=== PATIENT | female | born 1990 | race Caucasian/White ===

== ENCOUNTER → 2020-06-28 14:56 | Outpatient (CLI) | payer BC, SELFPAY | PROVIDERS: PCP Internal Medicine Adolescent Medicine; Visit Provider Internal Medicine Adolescent Medicine | DX: Z03.818 Encounter for observation for suspected exposure to other biological agents ruled out (principal); M79.10 Myalgia, unspecified site | CPT/HCPCS: U0003 ==

== ENCOUNTER 2020-08-19 06:35 | Emergency (ER) | payer BC, SELFPAY ==
[2020-08-19 06:44] VITALS: BP 128/86; PULSE 103; RESP 18; TEMP 36.9; O2SAT 97; BMI 40.3
--- NOTE | 2020-08-19 06:45 | HMH.EDGENADL ---
ED Disposition Condition on Discharge: Good - Critical Care Critical Care Time: No <Hebert Sutton - Last Filed: 08/19/20 07:49> Condition on Discharge: Good - Critical Care Critical Care Time: No <ManueljuliánPierre - Last Filed: 08/19/20 08:32> Clinical Impression: Vaginal bleeding Disposition: Home, Self-Care Additional Instructions: Please follow-up with [facility] [facility] in regards to vaginal bleeding. Ultrasound today confirms what appears to be normal intrauterine . No bacteria noted on urinalysis. Hemoglobin normal at 13 g. Please immediately return if any worsening vaginal bleeding, abdominal pain, lightheadedness/dizziness, weakness, or any other new concerning symptoms. Referrals: Salvador Awad MD [Primary Care Provider] - Attestation: On 08/19/20, the high probability of a clinically significant, sudden or life threatening deterioration of the following system(s) required my full and direct attention, intervention and personal management. The time I documented below is in addition to time spent performing reported procedures but includes the following listed in this critical care notation. Medical Decision Making - Medical Records Medical records reviewed: Yes: I reviewed the patient's medical records. - Tian Inquiry Pt receiving controlled substance: No - Lab Data Result diagrams: 08/19/20 07:00 08/19/20 07:00 <Hebert Sutton - Last Filed: 08/19/20 07:49> - Lab Data Result diagrams: 08/19/20 07:00 08/19/20 07:00 <ManueljuliánPierre - Last Filed: 08/19/20 08:32> Vital Signs: 08/19/20 06:44 08/19/20 08:07 Temperature 98.5 F Temperature Source Oral Pulse Rate [Right] 103 H 79 Respiratory Rate 18 18 Blood Pressure [Right Arm] 128/86 134/68 Blood Pressure Mean [Right Arm] 100 90 Blood Pressure Source [Right Arm] Automatic Cuff Blood Pressure Position [Right Arm] Sitting 02 Sat by Pulse Oximetry 97 100 Oxygen Delivery Method Room Air Room Air - Lab Data Lab Results 08/19/20 07:00: WBC 7.8, RBC 4.49, Hgb 13.4, Hct 39.5, MCV 88.0, MCH 29.8, MCHC 33.9, RDW 12.8, Plt Count 219, MPV 7.9, Neut % (Auto) 70.9, Lymph % (Auto) 24.7, [place] % (Auto) 3.2, Eos % (Auto) 1.0, Baso % (Auto) 0.2, Neut # (Auto) 5.6, Lymph # (Auto) 1.9, [place] # (Auto) 0.3, Eos # (Auto) 0.1, Baso # (Auto) 0.0 08/19/20 07:00: Sodium 135 L, Potassium 3.7, Chloride 107, Carbon Dioxide 22, Anion Gap 9.7, BUN 9, Creatinine 0.70, Estimated Creat Clear 214, Estimated GFR 100, Est GFR ( Amer) 121, Glucose 110 H, Calcium 9.0, Total Bilirubin 0.4, AST 20, ALT 17, Alkaline Phosphatase 55, Total Protein 7.1, Albumin 3.7, Globulin 3.4 H, Albumin/Globulin Ratio 1.1 08/19/20 07:00: Blood Type A Positive 08/19/20 08:10: Urine Color Yellow, Urine Appearance Clear, Urine pH 6.0, Ur Specific [place] 1.025, Urine Protein Negative, Urine Glucose (UA) Negative, Urine Ketones Negative, Urine Blood 3+, Urine Nitrate Negative, Urine Bilirubin Negative, Urine Urobilinogen 0.2, Ur Leukocyte Esterase Negative, Urine RBC 5-10, Urine WBC None, Ur Squamous Epith Cells 10-20, Urine Bacteria None Orders (Tests/Meds): ORDERS Category Date Time Status US transvaginal Stat Exams 08/19/20 06:53 Taken Medical Decision Narrative: Richie: Patient care assumed for Dr. Sutton. In brief, patient is a 30-year-old coming in with vaginal bleeding 13 weeks into her . Bleeding is less than typical menses. Ultrasound confirms IUP without any significant complications. Patient is Rh+ so no indication for RhoGam. Urinalysis was obtained and demonstrates no bacteria. There is 3+ blood which fits into patient's clinical presentation. No indication for treatment for an infectious process. Other lab work unremarkable for significant anemia secondary to blood loss or any other significant changes. At this time, I shared this result with patient and family at bedside. All parties are understanding and agreement. I do believe patien
--- NOTE | 2020-08-19 06:52 | PC.NURSE ---
Called in ultrasound
--- NOTE | 2020-08-19 06:53 | US_ITS ---
PROCEDURE: US TRANSVAGINAL CLINICAL INDICATION: bleeding, 13 w preg COMPARISON: No exams were available for comparison FINDINGS: There is a single viable fetus in breech presentation. The cervix measures 4 cm and is closed. heart rate is 156 beats per minute. There is a normal amount of amniotic fluid seen. Early anterior placenta forming. No evidence of placenta previa. No gross abnormality is identified. Both ovaries appear normal. The crown-rump length measures 7.96 cm equaling 14 weeks and 0 days within the other measurements of 7.69 cm equaling 13 weeks and 6 days. IMPRESSION: Viable early intrauterine , recommend follow-up anatomical ultrasound at approximately 20 weeks for better overall evaluation. Dictated by: Dr. Emmett Caraballo MD 08/19/2020 08:51 Dr. Emmett Caraballo MD in OV 08/19/2020 08:51
[2020-08-19 07:14] LABS: Basophils % 0.2 % (0.1-2.0); Eosinophils # 0.1 K/mm3 (0.0-0.4); Hematocrit 39.5 % (37.0-47.0); Hemoglobin 13.4 g/dL (12.2-16.2); Lymphocytes # 1.9 K/mm3 (0.7-4.5); Lymphocytes % 24.7 % (10-50); Mean Corpuscular HGB Conc 33.9 g/dL (31.8-35.4); Mean Corpuscular Hemoglobin 29.8 pg (27.0-31.2); Mean Platelet Volume 7.9 fl (7.4-10.4); Monocytes # 0.3 K/mm3 (0.1-1.0); Monocytes % 3.2 % (1.7-9.3); Neutrophils # 5.6 K/mm3 (1.8-7.8); Neutrophils % 70.9 % (37.0-80.0); Platelet Count 219 K/mm3 (142-424); Red Blood Count 4.49 M/mm3 (4.20-5.40); Red Cell Distribution Width 12.8 % (11.5-17.5); White Blood Count 7.8 K/mm3 (4.8-10.8)
--- NOTE | 2020-08-19 07:20 | PC.NURSE ---
pt to ultrasound
[2020-08-19 07:22] LABS: Chloride 107 mmol/L (98-107); Potassium 3.7 mmoL/L (3.5-5.1); Sodium 135 mmol/L (136-145)
[2020-08-19 07:25] LABS: Alanine Aminotransferase 17 U/L (12-78); Albumin Level 3.7 g/dl (3.5-5.0); Albumin/Globulin Ratio 1.1 (1.1-1.8); Alkaline Phosphatase 55 U/L (38-126); Anion Gap 9.7 mEq/L (5-15); Aspartate Amino Transferase 20 U/L (14-36); Bilirubin,Total 0.4 mg/dl (0.2-1.3); Blood Urea Nitrogen 9 mg/dl (7-17); Carbon Dioxide 22 mmol/L (22.0-30.0); Creatinine Clearance Estimated 214 mL/min (50-200); Estimated Glomerular Filt Rate 100 ml/min (>60); GFR (African American) 121 ML/MIN (>60); Globulin 3.4 g/dL (1.3-3.2); Glucose 110 mg/dl (74-100); Total Protein,Serum 7.1 g/dl (6.3-8.2)
--- NOTE | 2020-08-19 07:45 | PC.NURSE ---
pt return from ultrasound pt drinking water at this time to try and be able to void to collect urine specimen
[2020-08-19 08:07] VITALS: BP 134/68; PULSE 79; RESP 18; O2SAT 100
[2020-08-19 08:11] LABS: Microscopic, Urine URINE MICROSCOPIC (MICROSCOPIC)
[2020-08-19 08:13] LABS: Appearance,Urine CLEAR (Clear); Bilirubin,Urine Negative (Negative); Blood, Urine 3+ (Negative); Color,Urine YELLOW (Yellow); Glucose,Urine (UA) Negative (Negative); Ketones,Urine Negative (Negative); Leukocyte Esterase,Urine Negative (Negative); Nitrate,Urine Negative (Negative); Protein,Urine Negative (Negative); Specific Gravity, Urine 1.025 (1.005-1.030); Urobilinogen,Urine 0.2 EU/dl (0.2)
[2020-08-19 08:47] VITALS: BP 134/68; PULSE 79; RESP 18; TEMP 36.9; O2SAT 100
== END 2020-08-19 08:47 | disposition home or self-care (01) ==
PROVIDERS: Emergency Provider Emergency Medicine; PCP Internal Medicine Adolescent Medicine
DX: O20.9 Hemorrhage in early pregnancy, unspecified (principal); Z3A.13 13 weeks gestation of pregnancy; R31.29 Other microscopic hematuria
CPT/HCPCS: 36415; 76830; 80053; 81001; 85025; 86900; 86901; 99283

== ENCOUNTER → 2021-05-14 09:21 | Outpatient (CLI) | payer OTHER, SELFPAY ==
[2021-05-14 09:47] LABS: Urine Pregnancy, HCG Qual. Negative (Negative)
[2021-05-14 09:49] LABS: Basophils # 0.1 K/mm3 (0-0.2); Basophils % 0.8 % (0.1-2.0); Eosinophils # 0.1 K/mm3 (0.0-0.4); Eosinophils % 1.4 % (0.1-12.0); Hematocrit 37.3 % (37.0-47.0); Hemoglobin 12.2 g/dL (12.2-16.2); Lymphocytes # 2.3 K/mm3 (0.7-4.5); Mean Corpuscular HGB Conc 32.8 g/dL (31.8-35.4); Mean Corpuscular Hemoglobin 29.3 pg (27.0-31.2); Mean Corpuscular Volume 89.4 fl (81-99); Mean Platelet Volume 7.8 fl (7.4-10.4); Monocytes # 0.3 K/mm3 (0.1-1.0); Monocytes % 3.6 % (1.7-9.3); Neutrophils # 4.4 K/mm3 (1.8-7.8); Neutrophils % 62.2 % (37.0-80.0); Platelet Count 295 K/mm3 (142-424); Red Blood Count 4.17 M/mm3 (4.20-5.40); Red Cell Distribution Width 13.4 % (11.5-17.5)
[2021-05-14 11:06] LABS: Chloride 106 mmol/L (98-107); Potassium 4.1 mmoL/L (3.5-5.1); Sodium 140 mmol/L (136-145)
[2021-05-14 11:09] LABS: Anion Gap 12.1 mEq/L (5-15); Blood Urea Nitrogen 10 mg/dl (7-17); Calcium 8.9 mg/dl (8.4-10.2); Carbon Dioxide 26 mmol/L (22.0-30.0); Estimated Glomerular Filt Rate 85 ml/min (>60); GFR (African American) 103 ML/MIN (>60); Glucose 104 mg/dl (74-100)
== END ==
PROVIDERS: Visit Provider Surgery
DX: Z01.812 Encounter for preprocedural laboratory examination (principal); N61.1 Abscess of the breast and nipple; Z20.822 Contact with and (suspected) exposure to COVID-19; U07.1 COVID-19
CPT/HCPCS: 36415; 80048; 81025; 85025; U0003

== ENCOUNTER 2021-05-15 06:05 | Day surgery (SDC) | payer OTHER, SELFPAY ==
[2021-05-14 12:09] VITALS: BMI 40.7
[2021-05-15] VITALS (12 sets, daily range): BP systolic 125–145; BP diastolic 70–94; PULSE 61–85; RESP 12–18; TEMP 36.2–36.6; O2SAT 95–99
--- NOTE | 2021-05-15 07:45 | HMH.OPNOTE ---
Date of procedure: 05/15/21 Pre-op Diagnosis:: Medial left breast/mid-chest abscess Post-op Diagnosis:: Same Procedure performed:: Incision and drainage of left medial breast/mid-chest abscess Surgeon:: Adalberto June MD BUSINESS PROJECT MANAGER:: Neal Byers Anesthesia: LMA Estimated blood loss (mL): 5 Operative findings:: Large pocket of purulence projecting from the mid chest to left medial breast with surrounding induration Operative note:: After informed consent was obtained the patient was taken to the operating room and placed in the supine position. Her left breast and mid chest were prepped and draped in a sterile fashion. A small opening with ongoing drainage was noted along the mid chest. Electrocautery was utilized to expand this site utilizing an elliptical incision. Fluid was obtained for Gram stain/culture. A pocket projecting toward the left medial breast was noted. This was evacuated. Moistened Kerlix was packed throughout the wound. The entire region was infiltrated with 1% lidocaine. Dressings were secured and the patient was transferred to recovery after removal of her laryngeal mask airway. Condition: stable Disposition: PACU Specimens:: Fluid for Gram stain/culture Complications:: No immediate
--- NOTE | 2021-05-15 07:53 | P.PN_ITS ---
[facility] Anesthesia Checklist - Structural Data Admitted From: Home Planned Operative Procedure/s: i/d chest abcess Consent for Planned Operative Procedure(s) Verified: Yes - Additional verifications Anesthesia Reactions: No Hx Blood Transfusions: No Blood Transfusion Reaction: No - Airway Assessment C-Spine Mobility Assessed: Yes TMJ Mobility Assessed: Yes Dentition: Good Dentition - Neurological Assessment Level of Consciousness: Awake, Alert, Appropriate - Anesthesia Plan Anesthesia Risk discussed: Yes Anesthesia Plan: Verified ASA Class: II Anesthesia Type: General [facility] History I have reviewed the patient's past medical history: Yes Medical History: Denies:: Cancer, Diabetes Mellitus Type 1, Diabetes Mellitus Type 2, Internal Pacemaker, MRSA, Seizures *Have you ever received a pneumonia vaccine?: No *Have you received a flu vaccine this season?: No Other Medical History: Denies: Blood Transfusion Reaction Anesthesia experience/problems:: none Other Surgeries: Yes: Other. No: Pacemaker Amputation: No - *Social History Last grade of school completed: High school graduate Smoking Status: Never smoker Alcohol Intake: never Substance Use Type: denies use *Occupational Status:: employed Housing: house Household Members: spouse, family *Travel in the last 8 weeks: None Family Hx:: No significant family history
--- NOTE | 2021-05-15 07:53 | HMH.ANESI ---
[facility] Anesthesia Record Part I Intake, IV Amount: 500 Estimated blood loss (mL): 0 Urine output (mL): 0 Blood Pressure: 134/80 SaO2: 95 Pulse Rate: 74 Respiratory Rate: 12 Temperature: 97.9 F Patient is:: Awake, Stable Stable to PACU at:: 07:50
--- NOTE | 2021-05-15 10:32 | P.PN_ITS ---
[facility] Anesthesia Record Part II Discharge Time: 08:50 Destination: Surgical Day Care (OP Surgery) PACU nurse assessment reviewed?: Yes Patient Condition:: Good Anesthesia Complications:: None Swallowing reflex intact?: Yes Cyanosis?: No Blood Pressure: 138/94 Pulse Rate: 67 Temperature: 97.7 F Mental Status: Alert & Oriented Pain level:: 2 Nausea and/or vomitting:: None Intake, IV Amount: 0
== END 2021-05-15 09:01 | disposition home or self-care (01) ==
LOC: OR 06:07
PROVIDERS: PCP Internal Medicine Adolescent Medicine; Visit Provider Surgery
PROC: (CPT 10061; principal; 2021-05-15 07:30)
DX: L02.219 Cutaneous abscess of trunk, unspecified
CPT/HCPCS: 10061; 87070; 87075; 87205; J2405

== ENCOUNTER 2022-03-04 16:48 | Emergency (ER) | payer OTHER, SELFPAY ==
[2022-03-04 16:49] VITALS: BP 133/95; PULSE 80; RESP 16; TEMP 36.8; O2SAT 98; BMI 43.8
[2022-03-04 17:12] LABS: POC Glucose,Bedside 94 (70-110)
--- NOTE | 2022-03-04 17:13 | HMH.EDGENADL ---
ED Disposition Clinical Impression: Vertigo Disposition: Home, Self-Care Condition on Discharge: Good Instructions: DI for Vertigo Additional Instructions: Antivert as needed for dizziness. Follow-up with primary care provider if symptoms persist. Prescriptions: Meclizine HCl [Antivert 25mg tablet] 25 mg PO TIDP PRN #15 tab PRN Reason: Vertigo Transmission Status: Pending to [facility][id number] Referrals: Salvador Awad MD [Primary Care Provider] - - Critical Care Critical Care Time: No Attestation: On 03/04/22, the high probability of a clinically significant, sudden or life threatening deterioration of the following system(s) required my full and direct attention, intervention and personal management. The time I documented below is in addition to time spent performing reported procedures but includes the following listed in this critical care notation. Medical Decision Making - Tian Inquiry Pt receiving controlled substance: No Vital Signs: 03/04/22 16:49 03/04/22 17:26 03/04/22 18:15 Temperature 98.2 F Temperature Source Oral Pulse Rate 74 75 Pulse Rate [Radial] 80 Respiratory Rate 16 16 19 Blood Pressure 122/80 122/75 Blood Pressure [Right Arm] 133/95 H Blood Pressure Mean [Right Arm] 107 Blood Pressure Position Sitting 02 Sat by Pulse Oximetry 98 98 100 Oxygen Delivery Method Room Air Room Air - Lab Data Lab Results 03/04/22 12:00: Urine Color Yellow, Urine Appearance Clear, Urine pH 6.0, Ur Specific [place] 1.025, Urine Protein Negative, Urine Glucose (UA) Negative, Urine Ketones Trace, Urine Blood 3+, Urine Nitrate Negative, Urine Bilirubin Negative, Urine Urobilinogen 0.2, Ur Leukocyte Esterase Negative, Urine RBC 5-10, Urine WBC None, Ur Squamous Epith Cells Occasional, Urine Bacteria None 03/04/22 12:00: Urine HCG, Qual Negative 03/04/22 16:55: Group A Strep Rapid Negative 03/04/22 17:00: WBC 6.9, RBC 4.76, Hgb 14.1, Hct 40.3, MCV 84.7, MCH 29.6, MCHC 34.9, RDW 12.6, Plt Count 247, MPV 7.7, Neut % (Auto) 48.4, Lymph % (Auto) 44.6, [place] % (Auto) 4.3, Eos % (Auto) 2.0, Baso % (Auto) 0.7, Neut # (Auto) 3.3, Lymph # (Auto) 3.1, [place] # (Auto) 0.3, Eos # (Auto) 0.1, Baso # (Auto) 0.1, Total Counted 100, Neutrophils % (Manual) 51, Lymphocytes % (Manual) 42, Monocytes % (Manual) 6, Eosinophils % (Manual) 1, Platelet Estimate Normal, RBC Morphology Normal 03/04/22 17:00: Sodium 140, Potassium 3.9, Chloride 103, Carbon Dioxide 29, Anion Gap 11.9, BUN 12, Creatinine 1.00, Estimated Creat Clear 80, Estimated GFR 65, Est GFR ( Amer) 79, Glucose 102 H, Calcium 9.1, Total Bilirubin 0.1 L, AST 29, ALT 31, Alkaline Phosphatase 75, Total Protein 7.9, Albumin 4.2, Globulin 3.7 H, Albumin/Globulin Ratio 1.1 03/04/22 17:04: POC Glucose 94 Result diagrams: 03/04/22 17:00 03/04/22 17:00 Orders (Tests/Meds): ED MEDICATIONS Discontinued Medications Generic Name Dose Route Start Last Admin Trade Name Freq PRN Reason Stop Dose Admin Meclizine HCl 25 mg 03/04/22 17:39 03/04/22 17:51 Meclizine 25mg Tablet PO 03/04/22 17:40 25 mg ONCE ONE Administration Ondansetron HCl 4 mg 03/04/22 17:39 03/04/22 17:51 Ondansetron 4mg/2ml Vial IV 03/04/22 17:40 4 mg ONCE ONE Administration ORDERS Category Date Time Status Strep Screen Confirmation Stat Micro 03/04/22 16:55 Received - ECG Data Tracing #1 EKG interpreted by Lucas Duran MD: Rhythm: sinus Rate: 82 [place]: normal Ectopy: none Conduction: normal ST Segment Changes: none T Wave Changes: none Q Waves: none Poor R wave progression Medical Decision Narrative: 5:51 PM: I spoke with the laboratory mechanic helper. Discussed CBC differential results. She says that she ran QC after seeing the abnormal results and the QC also returned with unusual results. She therefore ran it on a different machine and states that it looks better, she will enter those results as well as perform a manual dif
[2022-03-04 17:14] LABS: Microscopic, Urine URINE MICROSCOPIC (MICROSCOPIC)
[2022-03-04 17:15] LABS: Appearance,Urine CLEAR (Clear); Bilirubin,Urine Negative (Negative); Blood, Urine 3+ (Negative); Color,Urine YELLOW (Yellow); Glucose,Urine (UA) Negative (Negative); Ketones,Urine TRACE (Negative); Leukocyte Esterase,Urine Negative (Negative); Nitrate,Urine Negative (Negative); Protein,Urine Negative (Negative); Specific Gravity, Urine 1.025 (1.005-1.030); Urobilinogen,Urine 0.2 EU/dl (0.2)
[2022-03-04 17:19] LABS: Urine Pregnancy, HCG Qual. Negative (Negative)
--- NOTE | 2022-03-04 17:22 | ECG_ITS ---
APPROVED REPORT Exam: Resting ECG HR:82 bpm ECG Measurements Heart Rate 82 AXES VA 180 P 38 QRSd 89 QRS 7 QT 370 T 53 QTc 409 Conclusion SINUS RHYTHM Late R wave progression BORDERLINE ECG UNCONFIRMED REPORT Electronically signed by : Neftaly Cho MD 03/05/2022 17:28:17
[2022-03-04 17:26] VITALS: BP 122/80; PULSE 74; RESP 16; O2SAT 98
[2022-03-04 17:30] LABS: Alanine Aminotransferase 31 U/L (12-78); Albumin Level 4.2 g/dl (3.5-5.0); Albumin/Globulin Ratio 1.1 (1.1-1.8); Alkaline Phosphatase 75 U/L (38-126); Anion Gap 11.9 mEq/L (5-15); Aspartate Amino Transferase 29 U/L (14-36); Blood Urea Nitrogen 12 mg/dl (7-17); Calcium 9.1 mg/dl (8.4-10.2); Carbon Dioxide 29 mmol/L (22.0-30.0); Chloride 103 mmol/L (98-107); Creatinine Clearance Estimated 80 mL/min (50-200); Estimated Glomerular Filt Rate 65 ml/min (>60); GFR (African American) 79 ML/MIN (>60); Globulin 3.7 g/dL (1.3-3.2); Glucose 102 mg/dl (74-100); Potassium 3.9 mmoL/L (3.5-5.1); Sodium 140 mmol/L (136-145); Total Protein,Serum 7.9 g/dl (6.3-8.2)
[2022-03-04 17:36] LABS: Squamous Epithelial Cell,Urine Occasional #/hpf (0-5)
[2022-03-04 17:38] LABS: Bilirubin,Total 0.1 mg/dl (0.2-1.3)
[2022-03-04 17:43] LABS: MANUAL DIFFERENTIAL MANUAL DIFFERENTIAL (MANUAL DIFF)
[2022-03-04 18:06] LABS: Strep Scrn Group A (Rapid) Negative (Negative)
[2022-03-04 18:08] LABS: Hematocrit 40.3 % (37.0-47.0); Hemoglobin 14.1 g/dL (12.2-16.2); Mean Corpuscular HGB Conc 34.9 g/dL (31.8-35.4); Mean Corpuscular Hemoglobin 29.6 pg (27.0-31.2); Mean Corpuscular Volume 84.7 fl (81-99); Mean Platelet Volume 7.7 fl (7.4-10.4); Neutrophils % 48.4 % (37.0-80.0); Platelet Count 247 K/mm3 (142-424); Red Blood Count 4.76 M/mm3 (4.20-5.40); Red Cell Distribution Width 12.6 % (11.5-17.5); White Blood Count 6.9 K/mm3 (4.8-10.8)
[2022-03-04 18:09] LABS: Basophils # 0.1 K/mm3 (0-0.2); Basophils % 0.7 % (0.1-2.0); Eosinophils # 0.1 K/mm3 (0.0-0.4); Lymphocytes # 3.1 K/mm3 (0.7-4.5); Lymphocytes % 44.6 % (10-50); Monocytes # 0.3 K/mm3 (0.1-1.0); Monocytes % 4.3 % (1.7-9.3); Neutrophils # 3.3 K/mm3 (1.8-7.8)
[2022-03-04 18:15] VITALS: BP 122/75; PULSE 75; RESP 19; O2SAT 100
--- NOTE | 2022-03-04 18:15 | PC.NURSE ---
PT RESTING OFFERS NO C/O AT PRESENT
[2022-03-04 18:30] VITALS: BP 115/75; PULSE 72; RESP 19
[2022-03-04 18:36] LABS: Eosinophils % 1 % (0-3); Lymphocytes % 42 % (10-50); Monocytes % 6 % (2-9); Neutrophils % 51 % (42-76); Total Cells Counted 100
[2022-03-04 18:37] LABS: Platelet Estimate Normal; RBC Morphology Normal
[2022-03-04 18:50] VITALS: BP 115/75; PULSE 72; RESP 19; TEMP 36.8; O2SAT 100
[2022-03-04 18:52] VITALS: BP 115/75; PULSE 78; RESP 16; TEMP 36.6; O2SAT 98
== END 2022-03-04 18:53 | disposition home or self-care (01) ==
PROVIDERS: Emergency Provider Emergency Medicine; PCP Internal Medicine Adolescent Medicine
DX: R42 Dizziness and giddiness (principal); R03.0 Elevated blood-pressure reading, without diagnosis of hypertension; R11.0 Nausea
CPT/HCPCS: 80053; 81001; 81025; 82962; 85007; 85025; 87430; 93005; 96374; 99284; J2405

== ENCOUNTER 2024-03-15 15:43 | Observation (INO) | payer BC, SELFPAY ==
[2024-03-15] VITALS (8 sets, daily range): BP systolic 115–153; BP diastolic 60–98; PULSE 79–99; RESP 18; TEMP 36.8–37.3; O2SAT 98–100; BMI 47.1; BMI 47.0; BMI 47.7
--- NOTE | 2024-03-15 15:59 | ED_ITS ---
Discharge Plan Disposition Patient Disposition: Still a Patient Condition: Good Prescriptions Prescriptions: No Action meclizine 25 MG tablet 25 mg PO TIDP PRN (Reason: Vertigo) Qty: 15 0RF Referrals Follow up/Referrals: Qian Arevalo APRN [Primary Care Provider] - See instructions Clinical Impressions Clinical Impression: Abscess of left breast Discharge ED Provider: Salvador Hammer [facility] HPI General Stated complaint: left bump on chest Time Seen by Provider: 03/15/24 15:59 History of Present Illness Provider Complaint: She states that for the past 4 days approx she has had worsening swelling, redness, and hardness of a large area on her left breast. She denies fever, but she has had chills and malaise. She has a history of having a left breast abscess 2 years ago in this same area. She had to go to surgery to have that one drained. She states that her current symptoms are much worse than her symptoms were when she had to go to surgery. Related Data Previous Rx's Medication Instructions Recorded meclizine 25 mg tablet 25 mg PO TIDP PRN Vertigo #15 tabs 03/04/22 Allergies Allergy/AdvReac Type Severity Reaction Status Date / Time No Known Allergies Allergy Verified 03/15/24 16:06 [facility] Disclaimer: The information contained in this section may have been updated after the patient was seen, as this information can be updated by other users. Social History Smoking Status: Never smoker alcohol intake: never substance use type: denies use current occupational status: employed Travel in the last 8 weeks: None household members: spouse and family housing: house current occupation: [employer] caffeine: Yes ROS Obtained: Yes All systems reviewed & no additional complaints except as documented Constitutional Constitutional: Denies chills and Denies fever(s) Eyes Eyes: Denies eye discharge ENT Ears, Nose, Mouth, and Throat: Denies dizziness, Denies otalgia and Denies sore throat Cardiovascular Cardiovascular: Denies chest pain Respiratory Respiratory: Denies shortness of breath, Denies chest congestion, Denies cough, Denies stridor and Denies wheezing Gastrointestinal Gastrointestingal: Denies nausea or vomiting Musculoskeletal Musculoskeletal: Reports system reviewed and no additional complaints, except as documented and Denies arthralgias Integumentary/Breasts Skin/Breast: Reports as per HPI Neurologic Neurologic: Denies dizziness and Denies paresthesias Allergic/Immunologic Allergic/Immunologic: Denies wheezing Physical Exam General General appearance: alert and in no apparent distress Head Head exam: atraumatic, normocephalic and normal inspection Eye Eye exam: Present normal appearance, PERRL and EOMI ENT ENT exam: Present normal exam, normal oropharynx, mucous membranes moist, TM's normal bilaterally and normal external ear exam Neck Neck exam: Present normal inspection, full ROM and trachea midline; Absent meningismus or lymphadenopathy Chest Chest inspection: Present symmetric chest wall rise and tenderness Expanded Chest Exam Breast: left: erythema, swelling and tenderness Respiratory Respiratory exam: Present normal lung sounds bilaterally; Absent respiratory distress Cardiovascular Cardiovascular exam: Present regular rate and normal rhythm; Absent JVD Abdominal Exam Abdominal exam: Present soft and normal bowel sounds; Absent distention, tenderness or guarding Extremities Exam Extremities exam: Present normal inspection, full ROM and normal capillary refill; Absent calf tenderness Back Exam Back exam: Present normal inspection; Absent tenderness Neurological Exam Neurological exam: Present alert and oriented X3 Psychiatric Psychiatric exam: Present normal affect and normal mood Skin Skin exam: Present warm, dry, intact and normal color Lymphatic Lymphatic Findings: no adenopathy Medical Decision Making Medical Records Medical records reviewed: No I reviewed the patient's medical records. Tian Inquiry Pt receiving controlled substance: No Medical Decision Narrative: She was transferred to the ER due to her having a significant breast abscess and her history of having to go to surgery in the past to have a similar one drained.
--- NOTE | 2024-03-15 17:12 | CT_ITS ---
PROCEDURE INFORMATION: Exam: CT Chest With Contrast; Diagnostic Exam date and time: 03/15/2024 6:03 PM Age: 34 years old Clinical indication: Other: L breast abscess adjacent to sternum TECHNIQUE: Imaging protocol: Diagnostic computed tomography of the chest with contrast. Radiation optimization: All CT scans at this facility use at least one of these dose optimization techniques: automated exposure control; mA and/or kV adjustment per patient size (includes targeted exams where dose is matched to clinical indication); or iterative reconstruction. Contrast material: ISOVUE; Contrast volume: 75 ml; Contrast route: IV; COMPARISON: No relevant prior studies available. FINDINGS: Trachea: Findings suggestive of surgical clips in the pretracheal space as well as right hilar region. Clinically correlate regarding type of operative intervention. Lungs: Unremarkable. No consolidation. No masses. Pleural spaces: Unremarkable. No pneumothorax. No pleural effusion. Heart: Unremarkable. No cardiomegaly. No pericardial effusion. Coronary arteries: No evidence of coronary artery calcification Lymph nodes: Left 3 x 1.7 cm axillary adenopathy. Vasculature: Unremarkable. No aortic aneurysm. Diaphragm: Small hiatal hernia Liver: Decreased density throughout the liver compatible with hepatic steatosis. Spleen: Poorly defined Iso to hypodense mass within the spleen. Findings may correspond to a hemangioma however not adequately visualized. 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 Bones/joints: Unremarkable. No acute fracture. Soft tissues: 5.5 x 2.9 cm ovoid hypodense mass involving the primarily involving the subcutaneous tissues of the left breast. Slight extension into the left breast parenchyma. Findings most compatible with abscess formation. IMPRESSION: 1. 5.5 x 2.9 cm ovoid hypodense mass primarily involving the subcutaneous tissues of the left breast. Slight extension into the left breast parenchyma. Findings most compatible with abscess formation. 2. Left 3 x 1.7 cm axillary adenopathy. 3. Please see above report for discussion of nonacute findings.
[2024-03-15 17:32] LABS: Basophils # 0.1 K/mm3 (0-0.2); Basophils % 0.7 % (0.1-2.0); Chloride 106 mmol/L (98-107); Eosinophils # 0.1 K/mm3 (0.0-0.4); Hematocrit 41.4 % (37.0-47.0); Hemoglobin 13.8 g/dL (12.2-16.2); Lymphocytes # 2.3 K/mm3 (0.7-4.5); Lymphocytes % 26.3 % (10-50); Mean Corpuscular HGB Conc 33.5 g/dL (31.8-35.4); Mean Corpuscular Hemoglobin 29.6 pg (27.0-31.2); Mean Corpuscular Volume 88.4 fl (81-99); Mean Platelet Volume 7.8 fl (7.4-10.4); Monocytes # 0.3 K/mm3 (0.1-1.0); Monocytes % 3.6 % (1.7-9.3); Neutrophils # 5.9 K/mm3 (1.8-7.8); Neutrophils % 68.4 % (37.0-80.0); Platelet Count 264 K/mm3 (142-424); Potassium 3.7 mmoL/L (3.5-5.1); Red Blood Count 4.68 M/mm3 (4.20-5.40); Red Cell Distribution Width 12.9 % (11.5-17.5); Sodium 141 mmol/L (136-145); White Blood Count 8.6 K/mm3 (4.8-10.8)
[2024-03-15 17:35] LABS: Alanine Aminotransferase 38 U/L (12-78); Albumin Level 4.3 g/dl (3.5-5.0); Albumin/Globulin Ratio 1.1 (1.1-1.8); Alkaline Phosphatase 68 U/L (38-126); Anion Gap 8.7 mEq/L (5-15); Aspartate Amino Transferase 32 U/L (14-36); Bilirubin,Total 0.5 mg/dl (0.2-1.3); Blood Urea Nitrogen 12 mg/dl (7-17); Calcium 9.6 mg/dl (8.4-10.2); Carbon Dioxide 30 mmol/L (22.0-30.0); Creatinine Clearance Estimated 79 mL/min (50-200); Estimated Glomerular Filt Rate 64 ml/min (>60); GFR (African American) 78 ML/MIN (>60); Globulin 3.8 g/dL (1.3-3.2); Glucose 105 mg/dl (74-100); Total Protein,Serum 8.1 g/dl (6.3-8.2)
--- NOTE | 2024-03-15 17:38 | ED_ITS ---
Discharge Plan Disposition Patient Disposition: Still a Patient Condition: Good Clinical Impressions Clinical Impression: Abscess of left breast Discharge ED Provider: Thom Mon General Adult HPI General Chief complaint: Skin/Abscess/Foreign Body Stated complaint: left bump on chest Time Seen by Provider: 03/15/24 15:59 Mode of Arrival: Ambulatory Source of Information: Patient Limitations: No Limitations Description of Symptoms (Recalled from ER Triage Doc. by RN): left breast redness and pain History of Present Illness HPI narrative: Patient is a 34-year-old female past medical history of recurrent breast abscess who presents emergency department for evaluation of suspected breast abscess. History is obtained by patient at bedside. Originally she had she had surgery in 2020 for abscess of the left chest wall which was drained surgically, she has previously had it lanced in clinic. Over the last 48 hours she has had rapidly progressive left medial breast swelling adjacent to her sternum and erythema causing her to become concerned and presented for continued evaluation. No deep chest pain, she describes it as burning at the site of the swelling. No other acute complaints at this time. No anticoagulants. Related Data Previous Rx's Medication Instructions Recorded meclizine 25 mg tablet 25 mg PO TIDP PRN Vertigo #15 tabs 03/04/22 Allergies Allergy/AdvReac Type Severity Reaction Status Date / Time No Known Allergies Allergy Verified 03/15/24 16:06 [facility] Disclaimer: The information contained in this section may have been updated after the patient was seen, as this information can be updated by other users. Medical History (Updated 03/15/24 @ 21:56 by Radha Murguia RN) No significant past medical history Social History (Updated 03/15/24 @ 21:56 by Radha Murguia RN) Smoking Status: Never smoker alcohol intake: never substance use type: denies use current occupational status: employed Travel in the last 8 weeks: None household members: spouse and family housing: house current occupation: [employer] caffeine: Yes ROS Obtained: Yes Systems reviewed as appropriate & no additional complaints except as documented Physical Exam General General appearance: alert and in no apparent distress Head Head exam: atraumatic and normocephalic Eye Eye exam: Present PERRL ENT ENT exam: Present mucous membranes moist Neck Neck exam: Present normal inspection Chest Chest inspection: Present symmetric chest wall rise and other (Fluctuance and erythema left medial breast approximately 10 cm x 5 cm.) Respiratory Respiratory exam: Present normal lung sounds bilaterally; Absent respiratory distress Cardiovascular Cardiovascular exam: Present regular rate and normal rhythm Abdominal Exam Abdominal exam: Present soft; Absent tenderness Extremities Exam Extremities exam: Present normal inspection Neurological Exam Neurological exam: Present alert Psychiatric Psychiatric exam: Present normal affect Skin Skin exam: Present warm and dry Medical Decision Making Tian Inquiry Pt receiving controlled substance: No Vital Signs: 03/15/24 16:03 03/15/24 16:55 03/15/24 17:00 Temperature 98.2 F 99.1 F Temperature Source Oral Oral Pulse Rate 84 Pulse Rate [Left] 99 H 84 Respiratory Rate 18 18 Blood Pressure 153/98 H Blood Pressure [Right Arm] 120/70 141/79 H Blood Pressure Mean 107 Blood Pressure Mean [Right Arm] 86 99 Blood Pressure Source [Right Arm] Automatic Cuff Blood Pressure Position [Right Arm] Sitting 02 Sat by Pulse Oximetry 100 98 100 Oxygen Delivery Method Room Air Room Air 03/15/24 17:30 03/15/24 18:30 03/15/24 19:00 Temperature Temperature Source Pulse Rate 82 79 80 Pulse Rate [Left] Respiratory Rate Blood Pressure 115/78 119/72 121/68 Blood Pressure [Right Arm] Blood Pressure Mean 90 85 79 Blood Pressure Mean [Right Arm] Blood Pressure Source [Right Arm] Blood Pressure Position [Right Arm] 02 Sat by Pulse Oximetry 100 100 100 Oxygen Delivery Method 03/15/24 20:00 03/15/24 20:16 Temperature 99.1 F 98.4 F Temperature Source Oral Oral Pulse Rate 85 Pulse Rate [Left] 89 Respiratory Rate 18 18 Blood Pressure 141/90 H Blood Pressure [Right Arm] 126/60 Blood Pressure Mean Blood Pressure Mean [Right Arm] 82 Blood Pressure Source [Right Arm] Automatic Cuff Blood Pressure Position [Right Arm] 02 Sat by Pulse Oximetry 99 Oxygen Delivery Method Room Air Room Air Lab Data Lab Results 03/15/24 16:31: WBC 8.6, RBC 4.68, Hgb 13.8, Hct 41.4, MCV 88.4, MCH 29.6, MCHC 33.5, RDW 12.9, Plt Count 264, MPV 7.8, Neut % (Auto) 68.4, Lymph % (Auto) 26.3, [place] % (Auto) 3.6, Eos % (Auto) 1.0, Baso % (Auto) 0.7, Neut # (Auto) 5.9, Lymph # (Auto) 2.3, [place] # (Auto) 0.3, Eos # (Auto) 0.1, Baso # (Auto) 0.1, ESR 20, Sodium 141, Potassium 3.7, Chloride 106, Carbon Dioxide 30, Anion Gap 8.7, BUN 12, Creatinine 1.00, Estimated Creat Clear 79, Estimated GFR 64, Est GFR ( Amer) 78, Glucose 105 H, Calcium 9.6, Total Bilirubin 0.5, AST 32, ALT 38, Alkaline Phosphatase 68, C-Reactive Protein 38.6 H, Total Protein 8.1, Albumin 4.3, Globulin 3.8 H, Albumin/Globulin Ratio 1.1, Serum HCG, Qual Negative 03/15/24 16:31 03/15/24 16:31 Orders (Tests/Meds): ED MEDICATIONS Generic Name Dose Route Start Last Admin Trade Name Freq PRN Reason Stop Dose Admin Hydrocodone Bitart/Acetaminophen 1 tab 03/15/24 21:17 03/15/24 21:51 Hydrocodone/Apap 5/325 Mg Tablet PO 04/14/24 21:16 1 tab Q6HP PRN Administration Moderate Pain (4-6) Piperacillin Sod/Tazobactam 50 mls @ 100 mls/hr 03/15/24 22:30 03/15/24 22:25 Sod 3.375 gm/ Sodium Chloride IV 03/25/24 22:29 100 mls/hr Q8H JOLLY Administration Ibuprofen 400 mg 03/15/24 21:20 Ibuprofen 400 Mg Tablet PO 04/14/24 21:19 Q6HP PRN Mild Pain (1-3) Miscellaneous 1 each 03/15/24 17:15 03/15/24 19:34 Vancomycin Consult Request NOTAPPLIC 04/14/24 17:14 Not Given CONSULT [facility] Miscellaneous 1 each 03/15/24 21:15 03/15/24 22:35 Vancomycin Consult Request NOTAPPLIC 04/14/24 21:14 1 each CONSULT PHARMACY JOLLY Administration Ondansetron HCl 4 mg 03/15/24 21:17 Ondansetron 4mg/2ml Vial IV 04/14/24 21:16 Q8HP PRN Nausea Discontinued Medications Generic Name Dose Route Start Last Admin Trade Name Freq PRN Reason Stop Dose Admin Piperacillin Sod/Tazobactam 50 mls @ 100 mls/hr 03/15/24 17:12 03/15/24 17:51 Sod 3.375 gm/ Sodium Chloride IV 03/15/24 17:41 100 mls/hr ONCE ONE Administration Lactated Ringer's 1,000 mls @ 999 mls/hr 03/15/24 17:12 03/15/24 17:52 Lactated Ringer's 1000 Ml Bag IV 03/15/24 18:12 999 mls/hr .Q1H1M ONE Administration Vancomycin HCl 2,500 mg/ 250 mls @ 125 mls/hr 03/15/24 17:30 03/15/24 18:32 Sodium Chloride IV 03/15/24 19:29 125 mls/hr ONCE ONE Administration Iopamidol 75 ml 03/15/24 18:03 03/15/24 18:05 Iopamidol-370 (76%);100ml Bottle IV 03/15/24 18:04 75 ml ONCE ONE Administration ORDERS Category Date Time Status CT chest w con Stat Cat Scan 03/15/24 17:12 Completed Consult to General Surgery [CONS] Stat Cons 03/15/24 19:45 Ordered POCUS Point of Care (ER Only) Stat Exams 03/15/24 16:54 Completed CBC w/Auto Diff [Complete Blood Count Auto Diff] Stat Lab 03/15/24 16:31 Completed CMP [Comprehensive Metabolic Panel] Stat Lab 03/15/24 16:31 Completed CRP [C-Reactive Protein] Stat Lab 03/15/24 16:31 Completed ESR [Erythrocyte Sedimentation Rate] Stat Lab 03/15/24 16:31 Completed HCG Qualitative, Serum Stat Lab 03/15/24 16:31 Completed Blood Culture Stat Micro 03/15/24 16:31 Ordered Medical Decision Narrative: In summary patient is a 34-year-old female past medical history described above who presents emergency department for evaluation of left breast swelling. Patient is hemodynamically stable nontoxic-appearing arrival, afebrile. [id number] ultrasound at bedside is consistent with complex fluid collection of the left breast. Tunneling infection will be ruled out with CT of the chest with IV contrast. Hematologic labs be obtained. Broad-spectrum antibiotics will be initiated. Sepsis bolus fluids will be deferred given that I do not think patient is septic at this time and appears euvolemic. Initial workup reviewed by me, hematologic labs are nonactionable, no acute or critical electrolyte abnormality, hCG negative, no leukocytosis. CT read shows 5.5 x 2.9 ovoid hypodense mass involving the left subcutaneous tissues of the breast with slight extension the left breast parenchyma with left axillary adenopathy findings consistent with abscess formation. The case was discussed with surgeon Dr. Juan June regarding management who agrees patient is appropriate for admission to this institution he will likely drain it tomorrow. We will continue antibiotics and make her n.p.o. at midnight. Indication: Breast swelling Identified structures: Location: [Left breast] Findings: Large abscess 2 to 3 cm deep, 5 to 7 cm wide Impression: Left breast abscess Images were saved to permanent archive The study was technically adequate Soft Tissue CPT Codes: CPT Neck: 09080-55 CPT Upper extremity: 61889-50 CPT Axilla: 51131-12 CPT Chest wall: 83416-76 CPT Breast: 07445-42-CB/LT (complete), 71886-63-IB/LT (limited), CPT Upper Back: 36746-10 CPT Lower Back: 94413-29 CPT Abdominal Wall: 66246-28 CPT Pelvic Wall: 11749-58 CPT Lower Extremity: 77897-75 CPT Other Soft Tissue: 55981-88 This study was performed by me, and I personally interpreted all images/videos. Based on my clinical judgement, these images were adequate and did not necessitate further imaging. Critical Care Critical Care Time Critical Care Time: No
[2024-03-15 17:41] LABS: C-Reactive Protein 38.6 mg/L (0-4)
[2024-03-15 17:47] LABS: HCG Qualitative, Serum Negative (Negative)
[2024-03-15] MEDS: PIPERACILLIN/TAZO 3.375 GM in 0.9 % SODIUM CHLORIDE 50 ML IV ×2 (17:51→22:25)
[2024-03-15] MEDS: LACTATED RINGERS 1000ML 1,000 ML 999 ML IV (17:52)
[2024-03-15] MEDS: IOPAMIDOL-370 (76%);100ML BOTTLE 75 ML IV (18:05)
[2024-03-15 18:07] LABS: Erythrocyte Sedimentation Rate 20 mm/hr (0-20)
[2024-03-15] MEDS: VANCOMYCIN HCL 2,500 MG in 0.9 % SODIUM CHLORIDE 250 ML 125 MG IV (18:32)
--- NOTE | 2024-03-15 18:58 | PC.NURSE ---
Dr Mon had surgery companion caregiver paged to speak with him about this pt. Dr June called back and is speaking with Dr Mon now
--- NOTE | 2024-03-15 19:13 | PC.NURSE ---
BP 121/68 HR 84 02 SAT 100
--- NOTE | 2024-03-15 20:04 | PC.NURSE ---
House contacted for admit
--- NOTE | 2024-03-15 20:16 | PC.NURSE ---
Report called to GLEN Estrada
--- NOTE | 2024-03-15 20:40 | PC.NURSE ---
Patient arrived to floor via wheelchair from ED at 20:38.
--- NOTE | 2024-03-15 21:15 | EXP.HP ---
History of Present Illness *Admission Date: 03/15/24 *Reason for visit:: Breast abscess *History of present illness: Patient is a 34-year-old female past medical history of recurrent breast abscess who presents emergency department for evaluation of suspected breast abscess. History is obtained by patient at bedside. Originally she had she had surgery in 2020 for abscess of the left chest wall which was drained surgically, she has previously had it lanced in clinic. Over the last 48 hours she has had rapidly progressive left medial breast swelling adjacent to her sternum and erythema causing her to become concerned and presented for continued evaluation. No deep chest pain, she describes it as burning at the site of the swelling. No other acute complaints at this time. No anticoagulants. [facility] Disclaimer: The information contained in this section may have been updated after the patient was seen, as this information can be updated by other users. Social History Smoking Status: Never smoker alcohol intake: never substance use type: denies use current occupational status: employed Travel in the last 8 weeks: None household members: spouse and family housing: house current occupation: [employer] caffeine: Yes Review of Systems Review of Systems Review of systems:: pertinent systems reviewed and negative unless documented below ENT Ears, Nose, Mouth, and Throat: Denies dizziness *Neurologic Neurologic: Denies dizziness and Denies paresthesias Meds Home Medications and Allergies Home Medications Medication Instructions Recorded Confirmed Type meclizine 25 mg tablet 25 mg PO TIDP PRN Vertigo #15 tabs 03/04/22 Rx New Prescriptions to Start Prescriptions: Allergies Allergy/AdvReac Type Severity Reaction Status Date / Time No Known Allergies Allergy Verified 03/15/24 16:06 Exam Data for Last 24 hours Vital signs and Labs for Last 24 Hours: Temp Pulse Resp BP Pulse Ox O2 Del Method 98.4 F 85 18 141/90 H 100 Room Air 03/15/24 20:16 03/15/24 20:16 03/15/24 20:16 03/15/24 20:16 03/15/24 19:00 03/15/24 20:16 Laboratory Results - last 24 hr 03/15/24 16:31: WBC 8.6, RBC 4.68, Hgb 13.8, Hct 41.4, MCV 88.4, MCH 29.6, MCHC 33.5, RDW 12.9, Plt Count 264, MPV 7.8, Neut % (Auto) 68.4, Lymph % (Auto) 26.3, [place] % (Auto) 3.6, Eos % (Auto) 1.0, Baso % (Auto) 0.7, Neut # (Auto) 5.9, Lymph # (Auto) 2.3, [place] # (Auto) 0.3, Eos # (Auto) 0.1, Baso # (Auto) 0.1, ESR 20, Sodium 141, Potassium 3.7, Chloride 106, Carbon Dioxide 30, Anion Gap 8.7, BUN 12, Creatinine 1.00, Estimated Creat Clear 79, Estimated GFR 64, Est GFR ( Amer) 78, Glucose 105 H, Calcium 9.6, Total Bilirubin 0.5, AST 32, ALT 38, Alkaline Phosphatase 68, C-Reactive Protein 38.6 H, Total Protein 8.1, Albumin 4.3, Globulin 3.8 H, Albumin/Globulin Ratio 1.1, Serum HCG, Qual Negative I & O for Last 24 hours: Intake & Output 03/12/24 03/13/24 03/14/24 03/15/24 23:59 23:59 23:59 23:59 Weight 136.078 kg Constitutional Constitutional: no acute distress *Routine HEENT Exam Head: Present normocephalic Eye: Present EOMI ENT: Present mucous membranes moist *Routine Neck Exam Neck: Present supple; Absent lymphadenopathy Routine Chest/Breast/Axilla Exam Breast: Present mass, swelling and erythema *Routine Respiratory Exam Respiratory: Present CTA bilaterally *Routine Cardiovascular Exam Cardiovascular: Present RRR *Routine Abdominal Exam Abdominal: Present soft and normoactive bowel sounds; Absent tenderness *Routine Rectal Exam Rectal:: deferred *Routine Genitalia Exam Genitalia:: deferred *Routine Extremities Exam Extremities: Absent cyanosis, clubbing or edema *Routine Skin Exam Skin: Present warm; Absent rash *Routine Neurological Exam Neurological: Present alert and oriented X3 Assessment and Plan *Assessment and plan (1) Abscess of left breast: Status: Acute Category: Medical Code(s): N61.1 - Abscess of the breast and nipple Plan Breast abscess -Vancomycin -Zosyn every 8 hours -General surgery consulted for I&D of breast abscess -Supportive management -[place] - npo midnight Hypertension -Monitor while acutely ill -Defer treatment initiation until acute illness resolves unless hypertension persistent and severe Nausea -Zofran
[2024-03-15] MEDS: HYDROCODONE/APAP 5/325 MG TABLET 1 TAB PO (21:51)
[2024-03-15] MEDS: VANCOMYCIN CONSULT REQUEST 1 EACH NOTAPPLIC (22:35)
[2024-03-16] VITALS (11 sets, daily range): BP systolic 96–145; BP diastolic 63–102; PULSE 68–92; RESP 16–20; TEMP 36.5–37.4; O2SAT 92–98; BMI 48.0
[2024-03-16] MEDS: IBUPROFEN 400 MG TABLET PO (03:01)
[2024-03-16] MEDS: HYDROCODONE/APAP 5/325 MG TABLET 1 TAB PO (04:01)
--- NOTE | 2024-03-16 04:16 | PC.NURSE ---
Pt has rested on and off since arriving to the floor. She continues to have some discomfort to her left breast area. She has been medicated with [place] twice and Ibuprofen once this shift. Pt has been NPO since MI. She is able to ambulate to BR and has voided without difficulty.
[2024-03-16] MEDS: PIPERACILLIN/TAZO 3.375 GM in 0.9 % SODIUM CHLORIDE 50 ML IV ×2 (05:30→10:44)
--- NOTE | 2024-03-16 06:09 | PC.NURSE ---
Vancomycin due and nurse explaining, Pt reports that the med in the ER made her feel not well. She asked for zofran prior to administration. Pt explains that the med made her feel like I had heartburn in my chest . Call placed to [facility] [place] with plans to hold Vancomycin for now. Nurse informed pt and her mom of plan to hold medication for now and pts mom elaborates more reporting that vanc caused itching, caused her to feel like her head was swelling in addition to the chest discomfort.
[2024-03-16 06:49] LABS: Basophils # 0.1 K/mm3 (0-0.2); Basophils % 0.6 % (0.1-2.0); Eosinophils # 0.1 K/mm3 (0.0-0.4); Eosinophils % 1.1 % (0.1-12.0); Hematocrit 35.6 % (37.0-47.0); Lymphocytes # 1.9 K/mm3 (0.7-4.5); Lymphocytes % 23.6 % (10-50); Mean Corpuscular HGB Conc 33.6 g/dL (31.8-35.4); Mean Corpuscular Hemoglobin 29.3 pg (27.0-31.2); Mean Corpuscular Volume 87.2 fl (81-99); Mean Platelet Volume 7.9 fl (7.4-10.4); Monocytes # 0.3 K/mm3 (0.1-1.0); Monocytes % 3.9 % (1.7-9.3); Neutrophils # 5.8 K/mm3 (1.8-7.8); Neutrophils % 70.7 % (37.0-80.0); Platelet Count 222 K/mm3 (142-424); Red Blood Count 4.08 M/mm3 (4.20-5.40); Red Cell Distribution Width 13.1 % (11.5-17.5); White Blood Count 8.2 K/mm3 (4.8-10.8)
[2024-03-16 07:04] LABS: INR 0.99 (0.9-1.1); Prothrombin Time 11.1 seconds (10.1-12.5)
[2024-03-16 07:08] LABS: Alanine Aminotransferase 28 U/L (12-78); Albumin Level 3.4 g/dl (3.5-5.0); Albumin/Globulin Ratio 1.1 (1.1-1.8); Alkaline Phosphatase 69 U/L (38-126); Anion Gap 9.5 mEq/L (5-15); Aspartate Amino Transferase 26 U/L (14-36); Bilirubin,Total 0.8 mg/dl (0.2-1.3); Blood Urea Nitrogen 10 mg/dl (7-17); Calcium 8.7 mg/dl (8.4-10.2); Carbon Dioxide 26 mmol/L (22.0-30.0); Chloride 106 mmol/L (98-107); Creatinine Clearance Estimated 84 mL/min (50-200); Estimated Glomerular Filt Rate 73 ml/min (>60); GFR (African American) 88 ML/MIN (>60); Globulin 3.2 g/dL (1.3-3.2); Glucose 100 mg/dl (74-100); Magnesium 1.8 mg/dl (1.6-2.3); Phosphorous 3.6 mg/dl (2.5-4.5); Potassium 3.5 mmoL/L (3.5-5.1); Sodium 138 mmol/L (136-145); Total Protein,Serum 6.6 g/dl (6.3-8.2)
--- NOTE | 2024-03-16 08:03 | P.CONPHA_ITS ---
Pharmacy Consult Date: 03/16/24 Time: 08:03 Referring provider: DR. GODDARD Reason for Consult:: VANCOMYCIN DOSING Allergies Allergy/AdvReac Type Severity Reaction Status Date / Time No Known Allergies Allergy Verified 03/15/24 16:06 Home Medications Medication Instructions Recorded Confirmed Type meclizine 25 mg tablet 25 mg PO TIDP PRN Vertigo #15 tabs 03/04/22 Rx New Prescriptions to Start Prescriptions: Height: 1.7 m Weight: 138.981 kg Laboratory Results:: Laboratory Results - last 24 hr 03/15/24 16:31: WBC 8.6, RBC 4.68, Hgb 13.8, Hct 41.4, MCV 88.4, MCH 29.6, MCHC 33.5, RDW 12.9, Plt Count 264, MPV 7.8, Neut % (Auto) 68.4, Lymph % (Auto) 26.3, [place] % (Auto) 3.6, Eos % (Auto) 1.0, Baso % (Auto) 0.7, Neut # (Auto) 5.9, Lymph # (Auto) 2.3, [place] # (Auto) 0.3, Eos # (Auto) 0.1, Baso # (Auto) 0.1, ESR 20, Sodium 141, Potassium 3.7, Chloride 106, Carbon Dioxide 30, Anion Gap 8.7, BUN 12, Creatinine 1.00, Estimated Creat Clear 79, Estimated GFR 64, Est GFR ( Amer) 78, Glucose 105 H, Calcium 9.6, Total Bilirubin 0.5, AST 32, ALT 38, Alkaline Phosphatase 68, C-Reactive Protein 38.6 H, Total Protein 8.1, Albumin 4.3, Globulin 3.8 H, Albumin/Globulin Ratio 1.1, Serum HCG, Qual Negative 03/16/24 06:28: WBC 8.2, RBC 4.08 L, Hgb 12.0 L D, Hct 35.6 L, MCV 87.2, MCH 29.3, MCHC 33.6, RDW 13.1, Plt Count 222, MPV 7.9, Neut % (Auto) 70.7, Lymph % (Auto) 23.6, [place] % (Auto) 3.9, Eos % (Auto) 1.1, Baso % (Auto) 0.6, Neut # (Auto) 5.8, Lymph # (Auto) 1.9, [place] # (Auto) 0.3, Eos # (Auto) 0.1, Baso # (Auto) 0.1, PT 11.1, INR 0.99, Sodium 138, Potassium 3.5, Chloride 106, Carbon Dioxide 26, Anion Gap 9.5, BUN 10, Creatinine 0.90, Estimated Creat Clear 84, Estimated GFR 73, Est GFR ( Amer) 88, Glucose 100, Calcium 8.7, Phosphorus 3.6, Magnesium 1.8, Total Bilirubin 0.8, AST 26, ALT 28 D, Alkaline Phosphatase 69, Total Protein 6.6, Albumin 3.4 L D, Globulin 3.2, Albumin/Globulin Ratio 1.1 Medical History: Medical History (Updated 03/15/24 @ 21:56 by Radha Murguia RN) No significant past medical history Assessment and Plan Assessment and plan all Dx Assessment and Plan for all problems:: Pharmacokinetic dosing service Objective: Patient: Floor: Age: 34 yo Serum creatinine: 0.90 mg/dL Height: 66.9 Inches Weight (kg): 139 Assessment: IBW (kg): 61.37 Dosing wt(kg): 139 Estimated Creatinine clearance (ml/min): 86.9 CRCL method: Cockcroft and Gault using ibw(default). Drug selected: Vancomycin Loading dose (mg): Vd (liters): 111.2 (factor used: 0.8 L/kg) Miguel (hr-1): 0.077 Half life (hrs): 9.00 CLvanco=?? 8.562 L/hr Recommended dose: 2500 mg Interval: 12 hrs Infusion time (hrs): 2.0 Predicted peak (mcg/mL): 34.6 Predicted trough (mcg/mL): 16.02 Total body weight is being used for vancomycin dosing. Recommendations: Give Vancomycin 2500 mg q 12 hrs with an expected Cpeak of 34.6 mcg/ml and an expected Ctrough of 16.02 mcg/ml AUC 0-24 /RYANN Data: RYANN 0.5 mcg/mL:?? AUC/RYANN:? 1168.0 RYANN 1.0 mcg/mL:?? AUC/RYANN:? 584.0 --------- RYANN 1.5 mcg/mL:?? AUC/RYANN:? 389.3 RYANN 2.0 mcg/mL:?? AUC/RYANN:? 292.0 Thank you for the consult, will continue to follow. -CADE CHAUHAN, CAITLIND
--- NOTE | 2024-03-16 08:57 | EXP.SURG.CON ---
History of Present Illness *Admission Date: 03/15/24 *Reason for visit:: Recurrent left breast abscess *History of present illness: This is a 34-year-old female who reported to the emergency department for evaluation management of her recurrent left breast abscess. She underwent incision and drainage of left medial breast/chest wall abscess in 2020. She has had minor recurrence of inflammatory changes on 2 separate occasions; however, she states that it was just worse this time . Evaluation revealed a fairly large abscess and the decision was made to admit the patient for IV antibiotics, pain management, and surgical consultation. Forwarded from admission H&P: Patient is a 34-year-old female past medical history of recurrent breast abscess who presents emergency department for evaluation of suspected breast abscess. History is obtained by patient at bedside. Originally she had she had surgery in 2020 for abscess of the left chest wall which was drained surgically, she has previously had it lanced in clinic. Over the last 48 hours she has had rapidly progressive left medial breast swelling adjacent to her sternum and erythema causing her to become concerned and presented for continued evaluation. No deep chest pain, she describes it as burning at the site of the swelling. No other acute complaints at this time. No anticoagulants. [facility] Disclaimer: The information contained in this section may have been updated after the patient was seen, as this information can be updated by other users. Medical History (Updated 03/15/24 @ 21:56 by Radha Murguia RN) No significant past medical history Social History (Updated 03/15/24 @ 21:56 by Radha Murguia RN) Smoking Status: Never smoker alcohol intake: never substance use type: denies use current occupational status: employed Travel in the last 8 weeks: None household members: spouse and family housing: house current occupation: [employer] caffeine: Yes Review of Systems ENT Ears, Nose, Mouth, and Throat: Denies dizziness *Neurologic Neurologic: Denies dizziness and Denies paresthesias Meds Home Medications and Allergies Home Medications Medication Instructions Recorded Confirmed Type No Known Home Medications 03/16/24 03/16/24 History New Prescriptions to Start Prescriptions: Allergies Allergy/AdvReac Type Severity Reaction Status Date / Time No Known Allergies Allergy Verified 03/15/24 16:06 Exam (Inpt) Vital signs and Labs for Last 24 Hours: Temp Pulse Resp BP Pulse Ox O2 Del Method 98.0 F 68 18 96/63 L 98 Room Air 03/16/24 07:47 03/16/24 07:47 03/16/24 07:47 03/16/24 07:47 03/16/24 07:47 03/16/24 07:47 Laboratory Results - last 24 hr 03/15/24 16:31: WBC 8.6, RBC 4.68, Hgb 13.8, Hct 41.4, MCV 88.4, MCH 29.6, MCHC 33.5, RDW 12.9, Plt Count 264, MPV 7.8, Neut % (Auto) 68.4, Lymph % (Auto) 26.3, [place] % (Auto) 3.6, Eos % (Auto) 1.0, Baso % (Auto) 0.7, Neut # (Auto) 5.9, Lymph # (Auto) 2.3, [place] # (Auto) 0.3, Eos # (Auto) 0.1, Baso # (Auto) 0.1, ESR 20, Sodium 141, Potassium 3.7, Chloride 106, Carbon Dioxide 30, Anion Gap 8.7, BUN 12, Creatinine 1.00, Estimated Creat Clear 79, Estimated GFR 64, Est GFR ( Amer) 78, Glucose 105 H, Calcium 9.6, Total Bilirubin 0.5, AST 32, ALT 38, Alkaline Phosphatase 68, C-Reactive Protein 38.6 H, Total Protein 8.1, Albumin 4.3, Globulin 3.8 H, Albumin/Globulin Ratio 1.1, Serum HCG, Qual Negative 03/16/24 06:28: WBC 8.2, RBC 4.08 L, Hgb 12.0 L D, Hct 35.6 L, MCV 87.2, MCH 29.3, MCHC 33.6, RDW 13.1, Plt Count 222, MPV 7.9, Neut % (Auto) 70.7, Lymph % (Auto) 23.6, [place] % (Auto) 3.9, Eos % (Auto) 1.1, Baso % (Auto) 0.6, Neut # (Auto) 5.8, Lymph # (Auto) 1.9, [place] # (Auto) 0.3, Eos # (Auto) 0.1, Baso # (Auto) 0.1, PT 11.1, INR 0.99, Sodium 138, Potassium 3.5, Chloride 106, Carbon Dioxide 26, Anion Gap 9.5, BUN 10, Creatinine 0.90, Estimated Creat Clear 84, Estimated GFR 73, Est GFR ( Amer) 88, Glucose 100, Calcium 8.7, Phosphorus 3.6, Magnesium 1.8, Total Bilirubin 0.8, AST 26, ALT 28 D, Alkaline Phosphatase 69, Total Protein 6.6, Albumin 3.4 L D, Globulin 3.2, Albumin/Globulin Ratio 1.1 I & O for Labs for Last 24 Hours: Intake & Output 03/13/24 03/14/24 03/15/24 03/16/24 11:59 11:59 11:59 11:59 Intake Total 350 / 350 Output Total 0 / 0 Balance 350 / 350 Weight 306 lb 6.4 oz Constitutional: no acute distress Respiratory: Absent respiratory distress Cardiac: Absent Tachycardia GI: Present soft Comment:: Erythema/edema along left medial breast consistent with underlying abscess Results Labs 03/16/24 06:28 03/16/24 06:28 Labs: Laboratory Results - last 24 hr 03/15/24 16:31: WBC 8.6, RBC 4.68, Hgb 13.8, Hct 41.4, MCV 88.4, MCH 29.6, MCHC 33.5, RDW 12.9, Plt Count 264, MPV 7.8, Neut % (Auto) 68.4, Lymph % (Auto) 26.3, [place] % (Auto) 3.6, Eos % (Auto) 1.0, Baso % (Auto) 0.7, Neut # (Auto) 5.9, Lymph # (Auto) 2.3, [place] # (Auto) 0.3, Eos # (Auto) 0.1, Baso # (Auto) 0.1, ESR 20, Sodium 141, Potassium 3.7, Chloride 106, Carbon Dioxide 30, Anion Gap 8.7, BUN 12, Creatinine 1.00, Estimated Creat Clear 79, Estimated GFR 64, Est GFR ( Amer) 78, Glucose 105 H, Calcium 9.6, Total Bilirubin 0.5, AST 32, ALT 38, Alkaline Phosphatase 68, C-Reactive Protein 38.6 H, Total Protein 8.1, Albumin 4.3, Globulin 3.8 H, Albumin/Globulin Ratio 1.1, Serum HCG, Qual Negative 03/16/24 06:28: WBC 8.2, RBC 4.08 L, Hgb 12.0 L D, Hct 35.6 L, MCV 87.2, MCH 29.3, MCHC 33.6, RDW 13.1, Plt Count 222, MPV 7.9, Neut % (Auto) 70.7, Lymph % (Auto) 23.6, [place] % (Auto) 3.9, Eos % (Auto) 1.1, Baso % (Auto) 0.6, Neut # (Auto) 5.8, Lymph # (Auto) 1.9, [place] # (Auto) 0.3, Eos # (Auto) 0.1, Baso # (Auto) 0.1, PT 11.1, INR 0.99, Sodium 138, Potassium 3.5, Chloride 106, Carbon Dioxide 26, Anion Gap 9.5, BUN 10, Creatinine 0.90, Estimated Creat Clear 84, Estimated GFR 73, Est GFR ( Amer) 88, Glucose 100, Calcium 8.7, Phosphorus 3.6, Magnesium 1.8, Total Bilirubin 0.8, AST 26, ALT 28 D, Alkaline Phosphatase 69, Total Protein 6.6, Albumin 3.4 L D, Globulin 3.2, Albumin/Globulin Ratio 1.1 Assessment and Plan *Assessment and plan (1) Abscess of left breast: Status: Acute Category: Medical Code(s): N61.1 - Abscess of the breast and nipple Plan: Continue antibiotics as per primary service She is being scheduled for incision and drainage of recurrent left breast abscess (later today) I have discussed the risks and benefits including, but not limited to: Bleeding Infection Damage to surrounding tissue Inherent risks of sedation The patient agrees to proceed.
[2024-03-16] MEDS: LINEZOLID 600 MG/300 ML IV.SOLN 300 MG IV (08:58)
--- NOTE | 2024-03-16 11:10 | PC.NURSE ---
pt taken down to surgery by surgical staff. Consent & pre-op checklist complete
[2024-03-16] MEDS: CEFAZOLIN 1GM VIAL 1 GM (11:46)
[2024-03-16] MEDS: LIDOCAINE 1% 20ML MDV 20 ML (11:58)
--- NOTE | 2024-03-16 11:59 | EXP.OP.NOTE ---
Date of procedure: 03/16/24 Pre-op Diagnosis:: Recurrent left breast/chest wall abscess Post-op Diagnosis:: Same Procedure performed:: Incision and drainage of recurrent left breast/chest wall abscess Surgeon:: Adalberto June MD ENVIRONMENTAL MAINTENANCE WORKER:: Nicola Rasheed Anesthesia: LMA Estimated blood loss (mL): 10 Operative findings:: Large pocket of purulence with overlying erythema along left medial breast (chest wall margin) Operative note:: After informed consent was obtained the patient was taken to the operating room and placed in the supine position. General anesthesia with laryngeal mask airway was achieved. The patient's left breast and chest wall were prepped and draped in sterile fashion. An ellipse of skin was excised along the breast/chest wall margin (prior incision and drainage site scar). A counterincision (ellipse of skin excised) was made along the lateral aspect of the palpable abscess cavity. Purulent fluid was obtained for Gram stain/culture. The entire cavity was evacuated. Electrocautery was utilized to achieve hemostasis. The wound was packed with Kerlix and the entire region was infiltrated with 1% lidocaine. Dressings were applied and the patient was transferred to recovery in stable condition. Condition: stable Disposition: PACU Specimens:: Fluid for Gram stain/culture Complications:: No immediate
--- NOTE | 2024-03-16 12:07 | EXP.ANES.CKL ---
[facility] Disclaimer: The information contained in this section may have been updated after the patient was seen, as this information can be updated by other users. Medical History (Updated 03/15/24 @ 21:56 by Radha Murguia RN) No significant past medical history Social History (Updated 03/15/24 @ 21:56 by Radha Murguia RN) Smoking Status: Never smoker alcohol intake: never substance use type: denies use current occupational status: employed Travel in the last 8 weeks: None household members: spouse and family housing: house current occupation: [employer] caffeine: Yes [facility] Anesthesia Checklist Patient Identification Patient Identification: Arm Band Structural Data Admitted From: Inpatient Planned Operative Procedure/s: I&D Left Breast Consent for Planned Operative Procedure(s) Verified: Yes Verified Documents: Surgical Consent and History and Physical NPO Status Verified Time NPO: 00:00 Additional verifications Anesthesia Reactions: No Hx Blood Transfusions: No Blood Transfusion Reaction: No Airway Assessment Mallampati Score:: Class II C-Spine Mobility Assessed: Yes TMJ Mobility Assessed: Yes Dentition: Good Dentition Neurological Assessment Level of Consciousness: Awake, Alert and Appropriate Anesthesia Plan Anesthesia Risk discussed: Yes Anesthesia Plan: Verified ASA Class: II Anesthesia Type: General
--- NOTE | 2024-03-16 12:08 | P.PNANES_ITS ---
[facility] Anesthesia Record Part I Anesthesia Record I Intake, IV Amount: 400 Hydration: Adequate Estimated blood loss (mL): 5 Urine output (mL): 0 Blood Products used (#): none Blood Pressure: 145/101 SaO2: 92 Pulse Rate: 78 Airway Patency: Patent Respiratory Rate: 16 Temperature: 99.4 F Patient is:: Drowsy and Stable Stable to PACU at:: 12:05
--- NOTE | 2024-03-16 12:44 | SUR.PHASEI ---
1235- report called to GLEN Saenz on med surg. Dressing clean nad intact with small amount of blood. Drainage unchanged from initial assessment to last PACU assessment. Patient VSS. Patient taken back to room 202 on bed. Chart dropped off to charting clerk. Patient currently in room with her RN at along with family.
--- NOTE | 2024-03-16 13:53 | PC.NURSE ---
PT RETURNED TO THE FLOOR AT 1245. VSS. PATIENT AWAKE AND ALERT. MINIMAL BURNING PAIN REPORTED. DRESSING ASSESSED WITH PACU NURSE. 4X4S AND TAPE INTACT. SHADOWING VISIBLE ON 4X4S, BUT UNCHANGED SINCE BEING IN THE PACU PER MEETING FACILITATOR. MOTHER AT BEDSIDE. PT HAS NO REQUESTS AT THIS TIME
--- NOTE | 2024-03-16 13:56 | PC.NURSE ---
PT RETURNED TO THE FLOOR AT 1245. VSS. PATIENT AWAKE AND ALERT. MINIMAL BURNING PAIN REPORTED IN THE LEFT BREAST. DRESSING ASSESSED WITH PACU NURSE. 4X4S AND TAPE INTACT. SHADOWING VISIBLE ON 4X4S, BUT UNCHANGED SINCE BEING IN THE PACU PER DELIVERY CREW MEMBER. MOTHER AT BEDSIDE. PT HAS NO REQUESTS AT THIS TIME
--- NOTE | 2024-03-16 13:58 | P.DS_ITS ---
General Admission date:: 03/15/24 Discharge date: 03/16/24 HPI HPI HPI: This is a 34-year-old female who reported to the emergency department for evaluation management of her recurrent left breast abscess. She underwent incision and drainage of left medial breast/chest wall abscess in 2020. She has had minor recurrence of inflammatory changes on 2 separate occasions; however, she states that it was just worse this time . Evaluation revealed a fairly large abscess and the decision was made to admit the patient for IV antibiotics, pain management, and surgical consultation. Forwarded from admission H&P: Patient is a 34-year-old female past medical history of recurrent breast abscess who presents emergency department for evaluation of suspected breast abscess. History is obtained by patient at bedside. Originally she had she had surgery in 2020 for abscess of the left chest wall which was drained surgically, she has previously had it lanced in clinic. Over the last 48 hours she has had rapidly progressive left medial breast swelling adjacent to her sternum and erythema causing her to become concerned and presented for continued evaluation. No deep chest pain, she describes it as burning at the site of the swelling. No other acute complaints at this time. No anticoagulants. Hospital Course Hospital Course Hospital Course: Patient admitted to hospital with left breast pain, and diagnosed with left breast abscess. Patient initially placed on IV vancomycin, but suffered from feeling like my head was being and chest burning. Patient's symptoms resolved after discontinuation of IV vancomycin. Patient been placed on IV linezolid/cefepime for remainder of hospitalization. Patient underwent I&D 03/16/2024 by general surgery. Patient subsequently discharged home by Dr. Nelson on 10 days doxycycline/cefdinir therapy, and with instructions to follow-up with PCP on outpatient basis. Exam Data for Last 24 hours Vital signs and Labs for Last 24 Hours: Temp Pulse Resp BP Pulse Ox O2 Del Method 98.8 F 70 16 139/87 93 L Room Air 03/16/24 13:08 03/16/24 13:03/16/24 13:03/16/24 13:03/16/24 13:03/16/24 13:08 Laboratory Results - last 24 hr 03/15/24 16:31: WBC 8.6, RBC 4.68, Hgb 13.8, Hct 41.4, MCV 88.4, MCH 29.6, MCHC 33.5, RDW 12.9, Plt Count 264, MPV 7.8, Neut % (Auto) 68.4, Lymph % (Auto) 26.3, [place] % (Auto) 3.6, Eos % (Auto) 1.0, Baso % (Auto) 0.7, Neut # (Auto) 5.9, Lymph # (Auto) 2.3, [place] # (Auto) 0.3, Eos # (Auto) 0.1, Baso # (Auto) 0.1, ESR 20, Sodium 141, Potassium 3.7, Chloride 106, Carbon Dioxide 30, Anion Gap 8.7, BUN 12, Creatinine 1.00, Estimated Creat Clear 79, Estimated GFR 64, Est GFR ( Amer) 78, Glucose 105 H, Calcium 9.6, Total Bilirubin 0.5, AST 32, ALT 38, Alkaline Phosphatase 68, C-Reactive Protein 38.6 H, Total Protein 8.1, Albumin 4.3, Globulin 3.8 H, Albumin/Globulin Ratio 1.1, Serum HCG, Qual Negative 03/16/24 06:28: WBC 8.2, RBC 4.08 L, Hgb 12.0 L D, Hct 35.6 L, MCV 87.2, MCH 29.3, MCHC 33.6, RDW 13.1, Plt Count 222, MPV 7.9, Neut % (Auto) 70.7, Lymph % (Auto) 23.6, [place] % (Auto) 3.9, Eos % (Auto) 1.1, Baso % (Auto) 0.6, Neut # (Auto) 5.8, Lymph # (Auto) 1.9, [place] # (Auto) 0.3, Eos # (Auto) 0.1, Baso # (Auto) 0.1, PT 11.1, INR 0.99, Sodium 138, Potassium 3.5, Chloride 106, Carbon Dioxide 26, Anion Gap 9.5, BUN 10, Creatinine 0.90, Estimated Creat Clear 84, Estimated GFR 73, Est GFR ( Amer) 88, Glucose 100, Calcium 8.7, Phosphorus 3.6, Magnesium 1.8, Total Bilirubin 0.8, AST 26, ALT 28 D, Alkaline Phosphatase 69, Total Protein 6.6, Albumin 3.4 L D, Globulin 3.2, Albumin/Globulin Ratio 1.1 I & O for Last 24 hours: Intake & Output 03/13/24 03/14/24 03/15/24 03/16/24 23:59 23:59 23:59 23:59 Intake Total 750 / 750 Output Total 0 / 0 Balance 750 / 750 Weight 138.119 kg 138.981 kg Results Data Completed and Pending Labs on day of discharge: Labs from last 24 hours 03/16/24 03/15/24 06:28 16:31 WBC 8.2 8.6 RBC 4.08 L 4.68 Hgb 12.0 L D 13.8 Hct 35.6 L 41.4 MCV 87.2 88.4 MCH 29.3 29.6 MCHC 33.6 33.5 RDW 13.1 12.9 Plt Count 222 264 MPV 7.9 7.8 Neut % (Auto) 70.7 68.4 Lymph % (Auto) 23.6 26.3 [place] % (Auto) 3.9 3.6 Eos % (Auto) 1.1 1.0 Baso % (Auto) 0.6 0.7 Neut # (Auto) 5.8 5.9 Lymph # (Auto) 1.9 2.3 [place] # (Auto) 0.3 0.3 Eos # (Auto) 0.1 0.1 Baso # (Auto) 0.1 0.1 ESR 20 PT 11.1 INR 0.99 Sodium 138 141 Potassium 3.5 3.7 Chloride 106 106 Carbon Dioxide 26 30 Anion Gap 9.5 8.7 BUN 10 12 Creatinine 0.90 1.00 Estimated Creat Clear 84 79 Estimated GFR 73 64 Est GFR ( Amer) 88 78 Glucose 100 105 H Calcium 8.7 9.6 Phosphorus 3.6 Magnesium 1.8 Total Bilirubin 0.8 0.5 AST 26 32 ALT 28 D 38 Alkaline Phosphatase 69 68 C-Reactive Protein 38.6 H Total Protein 6.6 8.1 Albumin 3.4 L D 4.3 Globulin 3.2 3.8 H Albumin/Globulin Ratio 1.1 1.1 Serum HCG, Qual Negative Imaging and Cardiology TESTING: Status: image reviewed by me Additional comments: PROCEDURE INFORMATION: Exam: CT Chest With Contrast; Diagnostic Exam date and time: 03/15/2024 6:03 PM Age: 34 years old Clinical indication: Other: L breast abscess adjacent to sternum TECHNIQUE: Imaging protocol: Diagnostic computed tomography of the chest with contrast. Radiation optimization: All CT scans at this facility use at least one of these dose optimization techniques: automated exposure control; mA and/or kV adjustment per patient size (includes targeted exams where dose is matched to clinical indication); or iterative reconstruction. Contrast material: ISOVUE; Contrast volume: 75 ml; Contrast route: IV; COMPARISON: No relevant prior studies available. FINDINGS: Trachea: Findings suggestive of surgical clips in the pretracheal space as well as right hilar region. Clinically correlate regarding type of operative intervention. Lungs: Unremarkable. No consolidation. No masses. Pleural spaces: Unremarkable. No pneumothorax. No pleural effusion. Heart: Unremarkable. No cardiomegaly. No pericardial effusion. Coronary arteries: No evidence of coronary artery calcification Lymph nodes: Left 3 x 1.7 cm axillary adenopathy. Vasculature: Unremarkable. No aortic aneurysm. Diaphragm: Small hiatal hernia Liver: Decreased density throughout the liver compatible with hepatic steatosis. Spleen: Poorly defined Iso to hypodense mass within the spleen. Findings may correspond to a hemangioma however not adequately visualized. 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 Bones/joints: Unremarkable. No acute fracture. Soft tissues: 5.5 x 2.9 cm ovoid hypodense mass involving the primarily involving the subcutaneous tissues of the left breast. Slight extension into the left breast parenchyma. Findings most compatible with abscess formation. IMPRESSION: 1. 5.5 x 2.9 cm ovoid hypodense mass primarily involving the subcutaneous tissues of the left breast. Slight extension into the left breast parenchyma. Findings most compatible with abscess formation. 2. Left 3 x 1.7 cm axillary adenopathy. 3. Please see above report for discussion of nonacute findings. DS: Diagnosis Discharge Diagnosis (1) Abscess of left breast: Status: Acute Code(s): N61.1 - Abscess of the breast and nipple Meds Home Medications and Allergies Home Medications Medication Instructions Recorded Confirmed Type cefdinir 300 mg capsule 300 mg PO BID #20 caps 03/16/24 Rx doxycycline hyclate 100 mg capsule 100 mg PO BID #20 caps 03/16/24 Rx hydrocodone 5 mg-acetaminophen 325 1 tab PO Q6HP PRN Moderate Pain 03/16/24 Rx mg tablet (4-6) #28 tabs New Prescriptions to Start Prescriptions: hydrocodone-acetaminophen Pako Nelson cefdinir [place] doxycycl[place] hyclate [place] Allergies Allergy/AdvReac Type Severity Reaction Status Date / Time vancomycin AdvReac Intermediate itching Verified 03/16/24 09:26 Discharge Plan Disposition Patient Disposition: Home, Self-Care Condition: Good Follow up Plan Follow up with: Qian Arevalo APRN [Primary Care Provider] - 1 week (Status post left breast abscess with incision and drainage done during hospitalization. Patient discharged on doxycycline/cefdinir x [address] Nelson) Adalberto June MD [Staff Physician] - 1 week Prescriptions/Medication Reconciliation: New hydrocodone-acetaminophen 5-325 mg Tablet 1 tab PO Q6HP PRN (Reason: Moderate Pain (4-6)) Qty: 28 0RF doxycycline hyclate 100 mg capsule 100 mg PO BID Qty: 20 0RF cefdinir 300 mg capsule 300 mg PO BID Qty: 20 0RF Problem Reconciliation Problems Reviewed?: Yes Patient Discharge Instructions ACTIVITY: Continue current activity DIET: continue same diet Patient Instructions: DI for Incision and Drainage of a Skin Abscess, DI for Skin Abscess Print Language: Icelandic Providers Primary Care Provider: Qian Arevalo Admit Provider: Pako Nelson Attending Provider: Pako Nelson
--- NOTE | 2024-03-17 07:21 | P.PNANES_ITS ---
[facility] Anesthesia Record Part II Anesthesia Record Part II Discharge Time: 12:35 Destination: Surgical Day Care (OP Surgery) PACU nurse assessment reviewed?: Yes Patient Condition:: Good Anesthesia Complications:: None Swallowing reflex intact?: Yes Airway Patency: Patent Cyanosis?: No Blood Pressure: 127/80 SaO2: 94 Respiratory Rate: 20 Pulse Rate: 80 Temperature: 99.4 F Mental Status: Alert & Oriented Pain level:: 3 Nausea and/or vomitting:: None Intake, IV Amount: 0 Hydration: Adequate
[2024-03-17 07:22] VITALS: BP 127/80; PULSE 80; RESP 20; TEMP 37.4; O2SAT 94
--- NOTE | 2024-03-18 13:01 | CARE MANAGER ---
Attempted to contact patient related to hospital discharge x 2. Left VM message. GLEN Wiley
== END 2024-03-16 14:55 | disposition home or self-care (01) ==
LOC: UTC 16:44 → ER 16:49 → 2ND 20:38
PROVIDERS: Student in an Organized Health Care Education/Training Program; Surgery; Admitting Provider Internal Medicine; Emergency Provider Emergency Medicine; PCP Nurse Practitioner Family; Visit Provider Internal Medicine
PROC: (CPT 10060; principal; 2024-03-16 11:30)
DX: N61.1 Abscess of the breast and nipple (principal); B96.89 Other specified bacterial agents as the cause of diseases classified elsewhere
CPT/HCPCS: 10060; 36415; 71260; 80053; 83735; 84100; 84703; 85025; 85610; 85651; 86140; 87040; 87070; 87077; 87205; 99285; G0378; J1100; J2020; J2250; J2405; J2543; J3010; J3370; J7120; Q9967

== ENCOUNTER 2024-03-20 11:57 | Emergency (ER) | payer BC, SELFPAY ==
[2024-03-20 11:58] VITALS: BP 139/84; PULSE 87; RESP 18; TEMP 36.8; O2SAT 98; BMI 47.0
--- NOTE | 2024-03-20 12:24 | ED_ITS ---
Discharge Plan Disposition Patient Disposition: Home, Self-Care Prescriptions Prescriptions: New Eliquis 5 mg tablet 5 mg PO BID 90 Days Qty: 190 0RF Rx Instructions: please take 10 mg BID for 7 days followed by 5 mg BID for a total of 3 months No Action hydrocodone-acetaminophen 5-325 mg Tablet 1 tab PO Q6HP PRN (Reason: Moderate Pain (4-6)) Qty: 28 0RF doxycycline hyclate 100 mg capsule 100 mg PO BID Qty: 20 0RF cefdinir 300 mg capsule 300 mg PO BID Qty: 20 0RF Referrals Follow up/Referrals: Qian Arevalo APRN [Primary Care Provider] - See instructions Activity Restrictions/Add. Instructions Additional Instructions/Restrictions: You have an extensive left upper extremity superficial thrombophlebitis in the basilic vein that is approximately 15 cm in length extending from the antecubital fossa to nearly her axilla. Given its length anticoagulation is indicated. Please return to the emergency department any significant bleeding particular on your recent surgical site or other bleeding as we discussed. Additionally the duration for anticoagulation with a superficial venous thrombosis is not well described or agreed upon. Prescription for 3 months of anticoagulation was sent but discontinuation will be a discussion between you and your primary care doctor. Please return with any chest pain shortness of breath or other concerns. Clinical Impressions Clinical Impression: Acute basilic vein thrombosis, Superficial thrombophlebitis Discharge ED Provider: Raul Scales General Adult HPI General Chief complaint: Extremity Problem,Nontraumatic Stated complaint: sweeling in left elbow post op Time Seen by Provider: 03/20/24 12:28 Mode of Arrival: Ambulatory Source of Information: Patient Limitations: No Limitations Description of Symptoms (Recalled from ER Triage Doc. by RN): left arm swelling. History of Present Illness HPI narrative: Patient is a 34-year-old female presenting today with left medial arm swelling. She was recently admitted in the hospital for breast abscess had incision and drainage that was done by Dr. Taveras on the she has been packing the wound without any significant bleeding and states that is much improved. However she is having significant pain and swelling of the medial aspect of the left arm which is in the same location where she recently had her IV placed. No fevers or chills no shortness of breath or chest pain. Related Data Previous Rx's Medication Instructions Recorded cefdinir 300 mg capsule 300 mg PO BID #20 caps 07/10/24 doxycycline hyclate 100 mg capsule 100 mg PO BID #20 caps 03/16/24 hydrocodone 5 mg-acetaminophen 325 1 tab PO Q6HP PRN Moderate Pain 03/16/24 mg tablet (4-6) #28 tabs apixaban 5 mg tablet (Eliquis) 5 mg PO BID 90 days #190 tabs 03/20/24 Allergies Allergy/AdvReac Type Severity Reaction Status Date / Time vancomycin AdvReac Intermediate itching Verified 03/16/24 09:26 [facility] Disclaimer: The information contained in this section may have been updated after the patient was seen, as this information can be updated by other users. Medical History (Updated 03/20/24 @ 12:23 by Raul Scales MD) No significant past medical history Social History (Updated 03/15/24 @ 21:56 by Radha Murguia RN) Smoking Status: Never smoker alcohol intake: never substance use type: denies use current occupational status: employed Travel in the last 8 weeks: None household members: spouse and family housing: house current occupation: [employer]istry caffeine: Yes ROS Obtained: Yes All systems reviewed & no additional complaints except as documented Physical Exam General General appearance: alert and in no apparent distress Respiratory Respiratory exam: Present normal lung sounds bilaterally Cardiovascular Cardiovascular exam: Present regular rate Extremities Exam Extremities exam: Present other (Swelling and palpable cord over the medial aspect of the left cubital fossa and distal upper arm) Neurological Exam Neurological exam: Present alert and oriented X3 Medical Decision Making Tian Inquiry Pt receiving controlled substance: No Vital Signs: 03/20/24 11:58 Temperature 98.2 F Temperature Source Oral Pulse Rate [Right] 87 Respiratory Rate 18 Blood Pressure [Right Arm] 139/84 Blood Pressure Mean [Right Arm] 102 02 Sat by Pulse Oximetry 98 Oxygen Delivery Method Room Air Orders (Tests/Meds): ED MEDICATIONS Discontinued Medications Generic Name Dose Route Start Last Admin Trade Name Freq PRN Reason Stop Dose Admin Apixaban 10 mg 03/20/24 12:21 Apixaban 5mg Tablet PO 03/20/24 12:22 ONCE ONE ORDERS Category Date Time Status POCUS Point of Care (ER Only) Stat Exams 03/20/24 12:06 Ordered Medical Decision Narrative: 34-year-old female present today with pain and swelling in her arm in the region where she recently had an IV. Limited bedside ultrasound demonstrates a very clear basilic vein thrombosis that is approximately 15 cm in length. No de finitive DVT is noted. Given its length anticoagulation is indicated and the superficial thrombophlebitis. We discussed bleeding risk with recent surgery seems as if she has no significant ongoing bleeding in the area and I believe that the benefit outweighs the harm in this particular situation. She understands this and she understands when to return emerged part with worsening bleeding or surgical site vaginal bleeding etc. I also discussed with her that anticoagulation duration is not well-described in the superficial thrombophlebitis that is getting anticoagulation and that ultimately this will be up to her primary care doctor. For provoked DVT normal duration is 3 months which is what I have prescribed to her but I told her that she can discontinue this earlier if it is done in conjunction with her primary care doctor. She has no signs or symptoms of a pulmonary embolism at the moment but return precautions have been emphasized regarding that. First dose of Eliquis given in the ED prescription sent to her pharmacy she was discharged in stable condition. Procedures Miscellaneous Procedure Procedure Performed: Limited venous ultrasound Indication evaluation of soft tissue swelling over the upper aspect of the arm Findings the left basilic vein has a thrombosis that extends from the proximal aspect near the axilla all the way into the antecubital fossa there is no compression or augmentation noted in this region. Total length is approximately 15 cm. No deep vein thrombosis noted. Images were saved and were adequate. Critical Care Critical Care Time Critical Care Time: No
[2024-03-20] MEDS: APIXABAN 5MG TABLET 10 MG PO (12:28)
[2024-03-20 12:44] VITALS: BP 139/84; PULSE 87; RESP 18; TEMP 36.8; O2SAT 98
== END 2024-03-20 12:46 | disposition home or self-care (01) ==
PROVIDERS: Emergency Provider Student in an Organized Health Care Education/Training Program; PCP Nurse Practitioner Family
DX: I82.612 Acute embolism and thrombosis of superficial veins of left upper extremity (principal); I80.8 Phlebitis and thrombophlebitis of other sites; M25.522 Pain in left elbow; M79.622 Pain in left upper arm
CPT/HCPCS: 99284

== ENCOUNTER 2025-05-26 16:47 | Outpatient (CLI) | payer BC, SELFPAY ==
--- OUTSIDE RECORDS SUMMARY | 2025-05-26 16:50 | XMS_ITS | Clinical Summary ---
Author Organization [facility] Address [address] [place] [address] Care Team Providers Care Cementer Hand Name Role Phone Provider, No Known Primary Care Provider Unavail able Allergies No known active allergies Medications Misc. Devices (Breast Pump) misc Use PRN 1 each 11/15/2020 Active Vit-Fe Fumarate-FA ( -) 27-1 MG tablet tablet Take by mouth Daily. Active Active Problems Problem Noted Date Diagnosed Date History of abnormal cervical Pap smear Overview (04/15/2021): 04/01/2021-ASCUS. Nonsixteen/18 HPV positive. Recommend repeat Pap smear in 6 months. (normal spontaneous vaginal delivery) 02/13 Resolved Problems Problem Noted Date Diagnosed Date Resolved Date Uterine size date discrepancy 01/10/2021 03/26/2021 Overview (01/31/2021): Measuring large. On 01/24/2021 BPP 8 out of 8. Baby in vertex position. Fluid volume 12.2. heart rate 145. Estimated weight 7 pounds 9 ounces which is 86 percentile. Of note AC measures greater than 99th percentile which is a 3-week acceleration. Obesity in , antepartum 07/10/2020 03/26/2021 Overview (07/10/2020): Discussed 15 to 25 pound weight gain. Discussed the importance of exercise throughout and carb control. 07/09/2020 03/26/2021 Overview (01/31/2021): 2010 female weighing 7 pounds 12 ounces 01/19/2015 miscarriage at 15 weeks 11/12/2015 male infant named Dominguez 7 pounds 11 ounces Current- surprise gender- either Yaya or Chelsea IOL 02/14 @ 6AM Immunizations Immunization Administration Dates Next Due Tdap 12/27/2020 Family History Medical History Relation Name Comments Endometriosis Maternal Grandmother Endometriosis Mother Relation Name Status Comments Maternal Grandmother Mother Social History Tobacco Use Types Packs/Day Years Used Date Smoking Tobacco: Never Smokeless Tobacco: Never Alcohol Use Standard Drinks/Week Comments Never 0 (1 standard drink = 0.6 oz pur e alcohol) AUDIT-C Answer Date Recorded Q1: How often do you have a drink containing alc ohol? Never 06/29/2020 Average Number of Drinks Not on file Frequency of Binge Drinking Not on file 06/08 [place] Depression Scale Answer Date Recorded [place] Depression Scale Total 0 03/28/2021 The thought of harming myself has occurred to me . Never 03/28/2021 Abuse Screen Answer Date Recorded Unsafe at Home or Work/School Not on file Feels Threatened by Someone? Not on file 05/2023 Does Anyone Keep You from Co ntacting Others or Doint Things Outside the Home? Not on file 06/15/2023 Physical Sign of Abuse Present Not on file 1 Housing Stability Answer Date Recorded Current Living Arrangements Not on file 05/2023 Potentially Unsafe Housing Conditions Not on carolina e 06/15/2023 Family and Community Support Answer Nando e Recorded Help with Day-to-Day Activities Not on file 06/15/2023 Lonely or Isolated Not on file 06/15/2023 Employment Answer Date Recorded Do you want help finding or keeping work or a jesus b? Not on file 06/15/2023 Disabilities Answer Date Recorded Concentrating, Remembering, or Making Decisions Difficulty Not on file 06/15/2023 Doing Errands Independently Difficulty Not on fi le 06/15/2023 Education Answer Date Recorded Help with school or training? Not on file Preferred Language Not on file 06/15/2023 Comments No Sex and Gender Information Value Date Recorded Sex Assigned at Female 07/09/2020 5:39 PM EST Legal Sex Female 1:12 PM EDT Gender Identity Female 07/09/2020 5:39 PM EST Sexual Orientation Not on file Occupation Industry Job Start Date Job End Date Not on file Not on file Not on file Not on file Last Filed Vital Signs Vital Sign Reading Time Taken Comments Blood Pressure 118/72 03/28/2021 11:18 AM EDT Pulse 81 02/13/2021 8:00 AM EDT Temperature 36.9 C (98.5 F) 02/13/2021 8:00 AM EDT Respiratory Rate 16 02/13/2021 8:00 AM EDT Oxygen Saturation - - Inhaled Oxygen Concentration - - Weight 121 kg (266 lb 11.2 oz) 03/28/2021 11:18 AM EDT Height 170.2 cm (5' 7 ) 02/11/2021 5:12 PM EDT Body Mass Index 41.77 02/11/2021 5:12 PM EDT Plan of Treatment Health Maintenance Due Date Last Done Comments ANNUAL PHYSICAL 06/29/2020 Annual Gynecologic Pelvic an d Breast Exam 03/29/2022 03/28/2021 INFLUENZA VACCINE 04/07/2025 TDAP/TD VACCINES (2 - Td or Tdap) 12/27/2030 021 HEPATITIS C SCREENING Completed 07/10/2020 Pneumococcal Vaccine 0-49 Aged Out No longer eligible based on patient's age to complete this topic Procedures Procedure Name Priority Date/Time Associated Diagnosis Comments SCANNED - PAP SMEAR 03/28/2021 OBSTETRIC PANEL Routine 07/10/2020 12:00 AM EST First trimester from Last 3 Months or Most Recently Relevant to Health Maintenance Results * SCANNED - PAP SMEAR (03/28/2021) Anamaria Romero MD CHART REVIEW TABS Fin al Result * (ABNORMAL) Obstetric Panel (07/10/2020 12:00 AM EST) Hepatitis B Surface Ag Negative Negative [facility] Hep C Virus Ab <0.1 0.0 - 0.9 s/co ratio [facility] Comment: Negative: < 0.8 Indeterminate: 0.8 - 0.9 Positive: > 0.9 The CDC recommends that a positive HCV antibody result be followed up with a HCV Nucleic Acid Amplification test (307122). RPR Non Reactive Non Reactive [facility] Rubella Antibodies, IgG 1.85 Immune >0.99 index [facility] Comment: Non-immune <0.90 Equivocal 0.90 - 0.99 Immune >0.99 ABO Type A [facility] Rh Factor Positive [facility] Comment: Please note: Prior records for this patient's ABO / Rh type are not available for additional verification. Antibody Screen Negative Negative [facility] WBC 9.2 3.4 - 10.8 x10E3/uL [facility] RBC 4.43 3.77 - 5.28 x10E6/uL [facility] Hemoglobin 13.2 11.1 - 15.9 g/dL [facility] Hematocrit 39.8 34.0 - 46.6 % [facility] MCV 90 79 - 97 fL [facility] MCH 29.8 26.6 - 33.0 pg [facility] MCHC 33.2 31.5 - 35.7 g/dL [facility] RDW 12.8 11.7 - 15.4 % [facility] Platelets 270 150 - 450 x10E3/uL [facility] Neutrophil Rel % 78 Not Estab. % [facility] Lymphocyte Rel % 18 Not Estab. % [facility] Monocyte Rel % 4 Not Estab. % [facility] Eosinophil Rel % 0 Not Estab. % [facility] Basophil Rel % 0 Not Estab. % [facility] Neutrophils Absolute 7.1(H) 1.4 - 7.0 x10E3/uL [facility] Lymphocytes Absolute 1.7 0.7 - 3.1 x10E3/uL [facility] Monocytes Absolute 0.4 0.1 - 0.9 x10E3/uL [facility] Eosinophils Absolute 0.0 0.0 - 0.4 x10E3/uL [facility] Basophils Absolute 0.0 0.0 - 0.2 x10E3/uL [facility] Immature Granulocyte Rel % 0 Not Estab. % [facility] Immature Grans Absolute 0.0 0.0 - 0.1 x10E3/uL [facility] Blood 07/10/2020 07/10/2020 Narrative [facility] (AMBULAT[facility]) - 07/12/2020 4:35 AM EST Performed at: 01 - [facility] [place] [address] [facility], [place], [place] [id number] Nurse Practitioner Adult: Julio Merino PhD, Phone: [phone] us Anamaria Romero MD LAB BLOOD ORDERABLES Fin al Result [facility] (AMBULAT[facility]) [address] [place] [address], [facility] [address] [place] [address], from Last 3 Months or Most Recently Relevant to Health Maintenance Insurance Advance Directives * CPR (Attempt to Resuscitate) (Latest Code Status on File) Date Activated Date Inactivated Comments 02/12/2021 12:17 AM 02/13/2021 1:41 PM Question Answer Comments Code Status (Patient has no pulse and is not breathing): CPR (Attempt to Resuscitate) Medical Interventions (Patie nt has pulse or is breathing): Full Care Teams Cementer Hand Relationship Specialty Start Date End Date Provider, No Known [facility] [place] [address] PCP - General 10/02/15
--- OUTSIDE RECORDS SUMMARY | 2025-05-26 16:50 | XMS_ITS | Clinical Summary ---
Author Organization [facility] Address [address] [place] [address] Care Team Providers Care Director Of Purchasing Name Role Phone Unavailable Primary Care Provider Unavailabl e Allergies No known active allergies Medications * This document contains information received from the source organization and may not represent a complete record from that organization. No known medications Active Problems Problem Noted Date Diagnosed Date Encounter for dental examination 08/22/2021 Immunizations Immunization Administration Dates Next Due Hep A, Adult 08/24/2018 Hep B, adult 03/28/2010,04/13/2003,03/14/2003 Influenza, seasonal, injectable 07/29/2021 MMR 02/19/1997,05/17/1993 Tdap 12/27/2020 Social History Tobacco Use Types Packs/Day Years Used Date Smoking Tobacco: Never Comments Unknown Sex and Gender Information Value Date Recorded Sex Assigned at Not on file Legal Sex Female 7:01 PM EDT Gender Identity Not on file Sexual Orientation Not on file Last Filed Vital Signs Vital Sign Reading Time Taken Comments Blood Pressure 144/99 01/17/2022 9:59 AM EDT Pulse 106 01/17/2022 9:59 AM EDT Temperature - - Respiratory Rate - - Oxygen Saturation - - Inhaled Oxygen Concentration - - Weight 108 kg (237 lb 6.3 oz) 01/26/2015 9:14 AM EDT Height 170.2 cm (5' 7 ) 01/26/2015 9:14 AM EDT Body Mass Index 37.18 01/26/2015 9:14 AM EDT Plan of Treatment Health Maintenance Due Date Last Done Comments [facility]-Depression Screening 1992 [facility]-/Child/Adol SDOH Screenings 1992 [facility]-Varicella Vaccines (1 of 2 - 13+ 2-dose series) 02/08/2005 [facility]- SDOH Screenings 02/08/2010 [facility]-Adult SDOH Screenings 02/08/2010 [facility]-Pap Smear 02/08/2013 HPV Vaccines (1 - 3-dose SCDM series) 02/08/2019 [facility]-Cervical Cancer Screening 02/08/2022 [facility]-HPV/Cotest 02/08/2022 Dental Oral Exam 02/21/2022 08/22/2021 Dental Prophylaxis 02/21/2022 08/22/2021 Dental X-Ray: Bitewings 08/23/2022 08/22/2021 Dental X-Ray: Full Mouth 08/23/2024 08/22/2021 [id number] Vaccine (2 - season) 2025 08/13/2021 [facility]-Influenza Vaccine (#1) 2025 07/29/2021 [facility]-DTaP,Tdap,and Td Vaccines (2 - Td or Tdap) 12/27/2030 12/27/2020 [facility]-Zoster Vaccines (1 of 2) 02/08/2042 [facility]-Hepatitis B Vaccines Completed 010, 04/13/2003, 03/14/2003 [facility]-Hepatitis A Vaccines Aged Out 08/24/2018 No longer eligible based on patient's age to complete this topic [facility]-HIB Vaccines Aged Out No longer e ligible based on patient's age to complete this topic [facility]-IPV Vaccines Aged Out No longer e ligible based on patient's age to complete this topic [facility]-Pneumococcal Vaccine: Pediatrics (0 to 5 Years) and At-Risk Patients (6 to 49 Years) Aged Out No longer eligible b ased on patient's age to complete this topic [facility]-Rotavirus Vaccines Aged Out No lo nger eligible based on patient's age to complete this topic Procedures Procedure Name Priority Date/Time Associated Diagnosis Comments PROPHYLAXIS - ADULT Routine 08/22/2021 2 :00 PM EST Encounter for dental examination PANORAMIC RADIOGRAPHIC IMAGE Routine 08/22/2021 8:15 AM EST Encounter for dental examination BITEWINGS - 4 RADIOGRAPHIC IMAGES Routine 08/22/2021 8:15 AM EST Encounter for dental examination COMPREHENSIVE ORAL EVALUATION - NEW OR ESTABLISHED PATIENT Routine 08/22/2021 8:15 AM EST Encounter for dental examination from Last 3 Months or Most Recently Relevant to Health Maintenance Insurance AETNA [facility] MEDICAID [facility] MEDICAID DENTAL
== END 2025-05-26 23:59 | disposition home or self-care (01) ==
LOC: LAB.DROPOF 16:47
PROVIDERS: PCP Obstetrics & Gynecology; Visit Provider Obstetrics & Gynecology
DX: Z34.81 Encounter for supervision of other normal pregnancy, first trimester (principal)
CPT/HCPCS: 87086

== ENCOUNTER 2025-06-22 11:11 | Outpatient (CLI) | payer BC, SELFPAY ==
--- OUTSIDE RECORDS SUMMARY | 2025-06-22 11:15 | XMS_ITS | Clinical Summary ---
Author Organization [facility] Address [address] [place] [address] Care Team Providers Care Collections Director Name Role Phone Provider, No Known Primary [...] of Binge Drinking Not on file 06/08 [place] Depression Scale Answer Date Recorded [place] Depression Scale Total 0 03/28/2021 The thought [...] * SCANNED - PAP SMEAR (03/28/2021) Anamaria Romeor MD CHART REVIEW TABS Fin al Result [...] with a HCV Nucleic Acid Amplification test (611845). RPR Non Reactive Non Reactive [facility] [...] AM EST Performed at: 01 - [facility] [place] [address] [facility], [place], [place] [id number] Video Photographer: Julio Merino PhD, Phone: [phone] us Anamaria Romero MD LAB BLOOD ORDERABLES Fin al Result [facility] ([facility]BULAT[facility]) [address] [place] [address], [facility] [address] [place] [address], from Last 3 Months or Most Recently [...] pulse or is breathing): Full Care Teams Collections Director Relationship Specialty Start Date End Date Provider, No Known [facility] [place] [address] PCP - General 10/02/15
--- OUTSIDE RECORDS SUMMARY | 2025-06-22 11:16 | XMS_ITS | Clinical Summary ---
Author Organization [facility] Address [address] [facility] [place] [address] Care Team Providers Care Hammerer Tab Name Role Phone Unavailable Primary Care Provider [...] 08/22/2021 Dental X-Ray: Full Mouth 08/23/2024 08/22/2021 [id number] Vaccine (2 - season) 2025 08/13/2021 [facility]-Influenza [...] Recently Relevant to Health Maintenance Insurance [facility]ETNA [facility] MEDICAID [facility] Medicaid Dental
[2025-06-22 11:53] LABS: Hematocrit 36.9 % (37.0-47.0); Hemoglobin 12.6 g/dL (12.2-16.2); Immature Granulocytes % 0.3 %; Mean Corpuscular HGB Conc 34.1 g/dL (31.8-35.4); Mean Corpuscular Hemoglobin 28.6 pg (27.0-31.2); Mean Corpuscular Volume 83.9 fl (81-99); Nucleated Red Blood Cells % 0 %; Platelet Count 206 K/mm3 (142-424); Red Blood Count 4.40 M/mm3 (4.20-5.40); Red Cell Distribution Width-SD 36.7 fL; White Blood Count 7.3 K/mm3 (4.8-10.8)
[2025-06-22 13:05] LABS: Hepatitis C Ab Qual. W/ RFX NEGATIVE (Negative)
[2025-06-23 07:16] LABS: Hepatitis B Surface Antigen Negative (Negative)
[2025-06-23 07:56] LABS: RPR W/RFX Titers Nonreactive (Nonreactive)
[2025-06-23 08:22] LABS: Rubella Antibodies, IgG 1.47 index (Immune >0.99)
== END 2025-06-22 23:59 | disposition home or self-care (01) ==
LOC: LAB 11:13
PROVIDERS: PCP Nurse Practitioner Family; Visit Provider Obstetrics & Gynecology
DX: Z34.81 Encounter for supervision of other normal pregnancy, first trimester (principal); Z3A.00 Weeks of gestation of pregnancy not specified
CPT/HCPCS: 36415; 85025; 86592; 86762; 86787; 86803; 86850; 87340; 87389

== ENCOUNTER 2025-08-10 12:43 | Outpatient (CLI) | payer BC, SELFPAY ==
--- OUTSIDE RECORDS SUMMARY | 2025-08-10 12:46 | XMS_ITS | Clinical Summary ---
Author Organization [facility] Address [address] [place] [address] Care Team Providers Care Elevator Operator Name Role Phone Provider, No Known Primary [...] of Binge Drinking Not on file 06/08 [place] Depression Scale Answer Date Recorded [place] Depression Scale Total 0 03/28/2021 The thought [...] with a HCV Nucleic Acid Amplification test (716540). RPR Non Reactive Non Reactive [facility] [...] AM EST Performed at: 01 - [facility] [place] [address] [facility], [place], [place] [id number] Legal Collector: Julio Merino PhD, Phone: [phone] us Anamaria Romero MD LAB BLOOD ORDERABLES Fin al Result [facility] (AMBULAT[facility]) [address] [place] [address], [facility] [address] [place] [address], from Last 3 Months or Most Recently [...] pulse or is breathing): Full Care Teams Elevator Operator Relationship Specialty Start Date End Date Provider, No Known [facility] [place] [address] PCP - General 10/02/15
--- OUTSIDE RECORDS SUMMARY | 2025-08-10 12:46 | XMS_ITS | Clinical Summary ---
Author Organization [facility] Address [address] [place] [address] Care Team Providers Care Associate Professor Of Theology Name Role Phone Unavailable Primary Care Provider [...] 08/22/2021 Dental X-Ray: Full Mouth 08/23/2024 08/22/2021 [id number] Vaccine (2 - season) 2025 08/13/2021 [facility]-Influenza [...] Recently Relevant to Health Maintenance Insurance [facility]ETNA [facility] [place]ICAID [facility] [place] Dental
--- NOTE | 2025-08-10 13:00 | US_ITS ---
PROCEDURE: US OB /MATERNAL DETAIL CLINICAL INDICATION: 20 week anatomy COMPARISON: No exams were available for comparison FINDINGS: Transabdominal sonographic images of the pelvis were obtained. From her established due date she is 21 weeks 5 days. Single viable intrauterine gestation. Breech position. Placenta: Lateralplacenta grade 1. A small placental Hernandes is seen. There is an average amount of fluid. The cervix appears satisfactory. Closed and measuring 5.56 cm in length. Complete survey performed and was unremarkable on the submitted images as in PACS. No discrete anomalies identified on survey imaging by technologist. Active fetus. Three-vessel cord with satisfactory umbilical cord insertion. 4- chamber heart noted. Situs, aortic arch, LVOT, RVOT, three-vessel view appear normal. Survey of brain & ventricles Unremarkable. Cerebellum, thalamus, choroid plexus, cisterna magna appear normal. Face and neck survey unremarkable. Profile, nasion, lips and nose appeared normal. Diaphragm and chest views unremarkable. Abdomen: Both kidneys noted and unremarkable. There is mild bilateral renal pelvis dilation measuring 4.1 mm and 4.1 mm. Stomach and bladder noted and satisfactory. Spine: Survey of the spine satisfactory with no anomalies identified nor imaged. Cervical, thoracic, lower spine appear normal. Both arms and legs noted. Amniotic Fluid: Adequate. MVP 5.66 cm Measurements: Average ultrasound age 22weeks 3days. Estimated due date by ultrasound age 0412/11/2025. Estimated weight 490g BPD = 22weeks 6days HC = 22weeks 1day AC = 22weeks 3days FL = 22weeks 1day Growth Percentile= 73 Heart Rate = 138bpm Cerebellum = 21weeks 1day Humerus = 23weeks 4days HC/AC is 1.14 FL/BPD is 0.69 FL/AC is 0.22 IMPRESSION: 1. Viable fetus in the breech presentation with the lateral placenta grade 1. 2. The fluid is within normal limits with an MVP 5.66 cm. 3. There is bilateral renal pelvis dilation measuring 4.1 mm and 4.1 mm. 4. The spine was seen but the views were suboptimal. 5. Somewhat difficult examination secondary to maternal body habitus. 6. The rest of the anatomical scan appears normal. 7. biometry is consistent with the dates. 8. Suggest patient return at 28 weeks for repeat views of the kidneys and spine. Dictated by: Fabian Davalos MD 08/10/2025 14:49 Fabian Davalos MD in OV 08/10/2025 14:49
== END 2025-08-10 23:59 | disposition home or self-care (01) ==
PROVIDERS: PCP Nurse Practitioner Family; Visit Provider Obstetrics & Gynecology
DX: O32.1XX0 Maternal care for breech presentation, not applicable or unspecified (principal); O35.EXX0 Maternal care for other (suspected) fetal abnormality and damage, fetal genitourinary anomalies, not applicable or unspecified; O99.891 Other specified diseases and conditions complicating pregnancy; O99.212 Obesity complicating pregnancy, second trimester; Q63.1 Lobulated, fused and horseshoe kidney; E66.9 Obesity, unspecified; Z3A.21 21 weeks gestation of pregnancy
CPT/HCPCS: 76811

== ENCOUNTER 2025-08-17 09:23 | Outpatient (CLI) | payer BC, SELFPAY ==
--- NOTE | 2025-08-17 09:30 | US_ITS ---
FINAL REPORT CLINICAL HISTORY: Right Upper Quadrant pain affecting FINDINGS: RIGHT UPPER QUADRANT ULTRASOUND Technique: Ultrasound images of the right upper quadrant were obtained. There is fatty infiltration of the liver. There is trace sludge in the gallbladder. There is a hypoechoic/anechoic structure inferior to the right kidney, favor fluid-filled bowel. There are no gallstones. Common duct measures 4 mm. The right kidney is unremarkable. IMPRESSION: Fatty liver. Trace gallbladder sludge. Reviewed, Interpreted and Dictated by Latrell Mayberry MD Transcribed by Jacki Khanna Authenticated and [facility]
== END 2025-08-17 23:59 | disposition home or self-care (01) ==
LOC: RAD 09:23
PROVIDERS: PCP Nurse Practitioner Family; Visit Provider Obstetrics & Gynecology
DX: O26.619 Liver and biliary tract disorders in pregnancy, unspecified trimester (principal); O99.210 Obesity complicating pregnancy, unspecified trimester; O26.899 Other specified pregnancy related conditions, unspecified trimester; K76.0 Fatty (change of) liver, not elsewhere classified; K82.8 Other specified diseases of gallbladder; E66.9 Obesity, unspecified; Z3A.00 Weeks of gestation of pregnancy not specified
CPT/HCPCS: 76705